=== PATIENT | male | born 1960 | race African-American/Black ===

== ENCOUNTER 2021-11-25 10:14 | Emergency (ER) | payer MEDICAID, SELFPAY ==
[2021-11-25 10:31] VITALS: BP 171/107; PULSE 88; RESP 16; TEMP 37.1; O2SAT 98
--- NOTE | 2021-11-25 11:04 | ED.SKABFB ---
HPI - Skin/Abscess/Foreign Bdy General Chief complaint: Wound/Laceration Stated complaint: BUMP BACK OF HEAD Time Seen by Provider: 11/25/21 10:45 Source: patient Mode of arrival: ambulatory Limitations: no limitations History of Present Illness HPI narrative: Patient presents emergency department for evaluation a lump to the back of his neck. He states that he frequently gets these lumps after shaving his head, however sometimes they get swollen, red, and infected. States that he was last treated 1-2 months ago with antibiotic and this improved. Denies fevers, chills, neck pain, neck stiffness, numbness or tingling of the extremities, pain down the back, urine or bowel dysfunction, headache. Related Data Previous Rx's Medication Instructions Recorded cephalexin 500 mg capsule 500 mg PO TID 5 days #15 caps 11/25/21 Allergies Allergy/AdvReac Type Severity Reaction Status Date / Time No Known Allergies Allergy Mild NOT Unverified 02/14/20 17:24 APPLICABLE Review of Systems Review of Systems: Skin: Red swollen lump to posterior head Yes all other systems are reviewed and are negative [facility] Past Medical History Attestation statement: The following information was validated with the patient. Source: old records reviewed Social History Social History Advance Directives: No Advance Directives Information Provided: Yes Physical Exam Vital Signs: Vital Signs: Last Vital Signs Temp 98.7 F 11/25/21 10:31 Pulse 83 11/25/21 11:16 Resp 16 11/25/21 11:16 BP 168/94 H 11/25/21 11:16 Pulse Ox 99 11/25/21 11:16 O2 Del Method 11/25/21 11:16 BMI result Body Mass Index 0.8 Appearance: Alert.?Oriented to person, place and time. No acute distress.?Normal affect. Eyes: Pupils equal, round and reactive to light.? ENT: Pharynx normal.?? Neck: Normal inspection.? Neck supple.?? CVS: Heart sounds normal. Normal heart rate and rhythm.? Pulses normal.?? Respiratory: No respiratory distress.? Lung sounds clear to auscultation bilaterally?? Abdomen: Soft and non-tender. Normoactive bowel sounds. Skin: Skin warm and dry.? Normal skin color.? Folliculitis at the left lower hairline with surrounding cellulitis, no fluctuance, or sign of abscess Extremities: No lower extremity edema.? Neuro: Moves all extremities spontaneously. Sensation intact bilaterally. No focal neuro deficits. Ambulates with normal steady gait. Course Course Course Narrative: Patient is a 61-year-old male who presents emergency department for evaluation of a lump to the back of his head, has had folliculitis/cellulitis in the past per his report, frequently gets these lumps due to shaving. Physical exam consistent with folliculitis and surrounding cellulitis, no sign of abscess. Nontoxic, afebrile, no neurological deficits. Discussed plan of care for warm moist compresses, course of antibiotics, follow-up with primary care provider as needed. Advised reasons to return back to the emergency department, discussed worrisome signs and symptoms, all questions were answered and he was discharged home in stable condition. MDM - Skin/Abscess/Foreign Bdy Medical Records Attestation: I reviewed the patient's medical records. Discharge Plan Discharge Clinical Impression: Folliculitis Patient Disposition: Home, Self-Care Instructions: Folliculitis (ED) Additional Instructions: You have been given a course of antibiotics, please complete this entire course. Apply warm moist compresses to the area frequently throughout the day. If you develop worsening pain, swelling, redness, drainage, fevers, chills this should be re-evaluated. Please follow-up with your primary care doctor as needed. Return to the emergency department any new or worsening symptoms or concerns. Prescriptions: New cephalexin 500 mg capsule 500 mg PO TID 5 Days Qty: 15 0RF Interventions: ED Discharge Assessment Last Done: 11/25/21 11:28 Discharge Date/Time: 11/25/21 11:28
[2021-11-25 11:16] VITALS: BP 168/94; PULSE 83; RESP 16; O2SAT 99
== END 2021-11-25 11:28 | disposition home or self-care (01) ==
PROVIDERS: Emergency Provider Emergency Medicine; PCP Family Medicine
DX: L73.9 Follicular disorder, unspecified (principal)
CPT/HCPCS: 99282; 99283

== ENCOUNTER 2023-02-23 14:31 | Outpatient (AMB) | payer MEDICAID, SELFPAY ==
--- NOTE | 2023-02-23 14:33 | A.OFFVIS_ITS ---
Intake Intake Visit Reasons: bleeding after intercourse Intake Note: NEW Patient presents today to established treatment for Bleeding After [place]: Meds- None Allergies to Antibiotic- No Known Allergies Blood Thinner- None Audiovisual Production Specialist Required: Yes Audiovisual Production Specialist Language: Syriac Information Interpreted: non-clinical & clinical Accompanied by: Significant Other Allergies No Known Allergies Allergy (Mild, Unverified 02/23/23 14:58) NOT APPLICABLE HPI HPI Comments History of Present Illness Details Gume is a 62-year-old male who presents today to the office to establish as a new patient for an evaluation of hematospermia. 02/23/2023? He presents today for an evaluation of hematospermia. Patient states that he has noted blood in the semen for many years starting in his 20s. Patient states that he was treated with antibiotics in the past and the symptoms will subside and then it will recur years later. Currently, he had blood in semen 2 months ago and was treated with Cipro. He denies any problems with urination. He denies any history of STDs, and he states that he was evaluated by urologist in the past. Eval: UA- leuk neg, blood neg Plan: Kidney, bladder US and PSA screening was ordered. Follow-up in office Cystoscopy. [facility] Medical History (Updated 03/01/23 @ 16:51 by Rei Gipson MD) HTN (hypertension) Heart attack Surgical History (Updated 02/23/23 @ 15:02 by RAVEN Vargas) No pertinent past surgical history Family History (Updated 02/23/23 @ 15:03 by RAVEN Vargas) Mother Heart disease Father Heart disease Social History (Updated 02/23/23 @ 15:03 by RAVEN Vargas) Alcohol intake: current Alcohol intake frequency: holidays/special occasions only Patient Tobacco Use Status: Never used Tobacco Review of Systems Const All systems reviewed & are unremarkable except as noted in HPI and below Reports no additional complaints Eyes Reports no additional complaints ENT Reports no additional complaints Card Denies dyspnea Resp Denies cough and Denies dyspnea GI Reports no additional complaints Musc Reports no additional complaints Skin/Breast Denies rash and Denies unusual bruising Neuro Reports no additional complaints Psych Reports no additional complaints Endo Reports no additional complaints Ash/Lymph Reports no additional complaints Aller/Immun Reports no additional complaints Physical Exam Const General: healthy appearing, no acute distress and well developed Orientation/consciousness: patient oriented x3 HEENT Head: Yes normocephalic and Yes atraumatic Eyes Conjunctivae: conjunctivae normal Neck Neck: Yes normal visual inspection Chest Chest palpation & inspection: normal inspection of the chest Resp Effort & Inspection: normal respiratory effort Cardio Rate: regular rate GI Inspection: Yes normal to inspection Palpation (GI): Soft to palpation Other: Prostate Exam: prostate nontender Skin General skin exam: no rashes or lesions noted Neuro General: patient oriented x3 Extrem General: No pedal edema Psych Appearance: grossly normal Affect: normal affect Results AMB Urinalysis, Automated UA Leukoctes 0 Massiel/uL Last Edit by RAVEN Vargas on 02/23/23 15:06 UA Nitrite Negative Last Edit by Shelbi Carney Gregg on 02/23/23 15:06 UA Urobilinogen 0 mg/dL Last Edit by RAVEN Vargas on 02/23/23 15:06 UA Protein 15 mg/dL Last Edit by Shelbi Carney [facility] on 02/23/23 15:06 UA pH 6.0 Last Edit by Shelbi Carney Gregg on 02/23/23 15:06 UA Blood 0 Yury/uL Last Edit by Shelbi Carney [facility] on 02/23/23 15:06 UA Specific [place] 1.015 Last Edit by Shelbi Carney Gregg on 02/23/23 15: 06 UA Ketone Negative Last Edit by RAVEN Vargas on 02/23/23 15:06 UA Bilirubin 0 mg/dL Last Edit by Shelbi Carney [facility] on 02/23/23 15:06 UA Glucose 0 mg/dL Last Edit by Shelbi Carney [facility] on 02/23/23 15:06 Results Reviewed Results Reviewed: Laboratory Last Values Urine pH (Auto) 6.0 02/23/23 15:04 Specific [place] (Auto) 1.015 02/23/23 15:04 Urine Protein (Auto) 15 mg/dL 02/23/23 15:04 Glucose (UA)(Auto) 0 mg/dL 02/23/23 15:04 Urine Ketones (Auto) Negative 02/23/23 15:04 Urine Blood (Auto) 0 Yury/uL 02/23/23 15:04 Urine Nitrite (Auto) Negative 02/23/23 15:04 Urine Bilirubin (Auto) 0 mg/dL 02/23/23 15:04 Urine Urobilinogen (Auto) 0 mg/dL 02/23/23 15:04 Leukocyte Esterase (Auto) 0 Massiel/uL 02/23/23 15:04 Assessment & Plan Assessment & Plan (1) Screening PSA (prostate specific antigen): Code(s): Z12.5 - Encounter for screening for malignant neoplasm of prostate Plan Kidney, bladder US and PSA screening was ordered. Follow-up in office Cystoscopy. Orders: Orders AMB Urinalysis Automated 02/23/23 Z13.9 - Encounter for screening, unspecified PSA,Total (Free>4and<10) 03/01/23 Z12.5 - Encounter for screening for malignant neoplasm of prostate US renal BI 03/01/23 R31.0 - Gross hematuria Patient Instructions: The patient had an opportunity to ask questions regarding treatment plan. All questions were answered. Imaging, Laboratory studies and physical exam results were discussed and reviewed in detail. No major barriers to understanding were identified. The patient expressed understanding and agreement with the above treatment plan.? ? ? The patient is aware they should contact our office by phone for worsening of their current condition or the appearance of new symptoms. Compliance is encouraged with any medications and followup testing that is ordered.? ? ? It is a privilege to be allowed the opportunity to participate in the urologic care of your patient. If you have any questions or concerns regarding treatment for the above conditions please do not hesitate to contact me. The office telephone contact is [phone].? ? ? This note is constructed in part using voice recognition software. While every effort has been made to ensure accuracy rope tier errors may have been included.? ? ? Yours sincerely,? ? ? Rei Gipson MD? ? Coding Level of Care Code New Pt Level 3 (91436) Diagnoses Screening PSA (prostate specific antigen) Z12.5
== END 2023-02-23 15:51 | disposition home or self-care (01) ==
PROVIDERS: PCP Family Medicine; Visit Provider Urology
DX: Z12.5 Encounter for screening for malignant neoplasm of prostate (principal)
CPT/HCPCS: 99203

== ENCOUNTER → 2023-02-23 14:31 | Outpatient (BNVA) | payer MEDICAID, SELFPAY | PROVIDERS: PCP Family Medicine; Visit Provider Urology | DX: R36.1 Hematospermia (principal); I10 Essential (primary) hypertension; Z12.5 Encounter for screening for malignant neoplasm of prostate | CPT/HCPCS: 81003; 99202 ==

== ENCOUNTER 2023-03-21 11:44 | Outpatient (REF) | payer MEDICAID, SELFPAY ==
[2023-03-21 14:10] LABS: Potassium 3.2 mmol/L (3.3-5.1)
== END 2023-03-21 11:45 | disposition home or self-care (01) ==
LOC: HO.HHCL 11:44
PROVIDERS: Visit Provider Family Medicine
DX: E87.6 Hypokalemia (principal)
CPT/HCPCS: 36415; 84132

== ENCOUNTER 2023-06-20 12:33 | Outpatient (REF) | payer MEDICAID, SELFPAY ==
--- NOTE | ~2023-06-20 | US_ITS ---
EXAMINATION: US RETROPERITONEAL LIMITED (RENAL ONLY) CLINICAL INFORMATION: Gross hematuria. COMPARISON: None available. TECHNIQUE: Real-time imaging of the kidneys. FINDINGS: RIGHT KIDNEY: 9.6 x 5.3 x 5.9 cm (SAG x AP x TRV). The kidney is normal in size, contour, and echogenicity. Renal cortical thickness is normal. No renal calculi or hydronephrosis. There are multiple simple cysts for which no follow-up imaging is recommended. The largest is a 4.5 x 2.6 x 3.5 cm exophytic cyst off the lateral kidney. LEFT KIDNEY: 9.8 x 5.9 x 5.2 cm (SAG x AP x TRV). The kidney is normal in size, contour, and echogenicity. Renal cortical thickness is normal. No renal calculi or hydronephrosis. There are multiple simple cysts for which no follow-up imaging is recommended. The largest is a 3.0 x 1.9 x 2.0 cm lower pole cyst. ADDITIONAL FINDIN.0 x 0.6 x 0.9 cm echogenic focus in the right lobe of liver is consistent with an hemangioma. US/US renal BI IMPRESSION: No significant finding within the kidneys. Multiple bilateral simple renal cysts for which no imaging follow-up is recommended. Incidental notes of an hemangioma in the liver.
== END 2023-06-20 12:34 | disposition home or self-care (01) ==
LOC: HO.US 12:33
PROVIDERS: PCP Family Medicine; Visit Provider Urology
DX: R31.0 Gross hematuria (principal)
CPT/HCPCS: 76775

== ENCOUNTER 2023-07-14 09:26 | Outpatient (AMB) | payer MEDICAID, SELFPAY ==
--- NOTE | 2023-07-14 09:57 | A.OFFVIS_ITS ---
Intake Intake Visit Reasons: Cysto Intake Note: Patient presents today for a Cystoscopy Meds: None Allergies to Antibiotic: No Known Allergies Blood Thinner: Aspirin Urinalysis test clear for Cysto Yes Patient stated he is currently taking Amoxicillin 500 due to a tooth extraction Disposable Uro-G Cystoscope Cannula Lot: [id number] Exp: 10/10/24. Pulp Maker Required: Yes Pulp Maker Language: Analysis Reporting Developer Name: Shelbi Carney, RAVEN/DANIA Spani Accompanied by: Allergies No Known Allergies Allergy (Mild, Verified 07/14/23 10:07) NOT APPLICABLE HPI HPI Comments History of Present Illness Details Gume is a 63-year-old male who presents today to the office for follow- up office cystoscopy. He had renal ultrasound performed 06/20/2023--bilateral simple cysts. Cystoscopy findings: Prostate bilobar prostatic urethral, bladder mucosa no suspicious bladder lesions Review of chart: 02/23/2023? He presents today for an evaluation of hematospermia. Patient states that he has noted blood in the semen for many years starting in his 20s. Patient states that he was treated with antibiotics in the past and the symptoms will subside and then it will recur years later. Currently, he had blood in semen 2 months ago and was treated with Cipro. He denies any problems with urination. He denies any history of STDs, and he states that he was evaluated by urologist in the past. Eval: UA- leuk neg, blood neg; Plan-- Kidney, bladder US and PSA screening was ordered. Follow-up in office Cystoscopy. 07/14/2023--plan PSA screening [facility] Medical History HTN (hypertension) Heart attack Surgical History No pertinent past surgical history Family History Mother Heart disease Father Heart disease Social History Alcohol intake: current Alcohol intake frequency: holidays/special occasions only Patient Tobacco Use Status: Never used Tobacco Review of Systems Const All systems reviewed & are unremarkable except as noted in HPI and below Reports no additional complaints Eyes Reports no additional complaints ENT Reports no additional complaints Card Reports no additional complaints Resp Reports no additional complaints GI Reports no additional complaints Reports as per HPI Musc Reports no additional complaints Skin/Breast Reports system reviewed and no additional complaints, except as documented Neuro Reports no additional complaints Psych Reports no additional complaints Endo Reports no additional complaints Ash/Lymph Reports no additional complaints Aller/Immun Reports no additional complaints Office Procedures Cystoscopy Consent Discussed risk and benefit or proposed procedure with the patient. Information consent for procedure given to the patient. Discussed technical aspects, risks, benefits and alternatives in full. Addressed all of the patient's questions and concerns regarding the procedure. The patient demonstrated knowledge and understanding. They wish to proceed with this procedure. Preparation The patient was prepped in the usual manner. A medical claims assistant was present and in the room. Genitalia was prepped with betadine solution in a sterile manner. Lidocaine Jelly 2% was placed into the urethra and 16Fr flexible Olympus cystoscope was inserted into the meatus after adequate lubrication. Procedure Time out per protocol performed. Bladder Inspection Bladder Inspection: The bladder was inspected in its entirety with utilization retroflexion displaying: Tumor(s): Nonvisualized Trabeculation: Present, mild Mucosal Erthema: Not applicable Orifices: normal shape and position Urethra: normal Cystoscopy findings: prostatic urethra - bilobar enlargement prostatic urethra, bulbous urethra WNL, no suspicious bladder lesions visualized [id number] DISPOSABLE SCOPE URO-G FLEXIBLE SCOPE Procedure code (CPT) selection complete Office Meds lidocaine HCl 2 % mucosal jelly in applicator Performing Provider: Rei Gipson MD [facility] Administered by: Rod Moraes LPN on 07/14/23 10:02 Dose Route Admin Location Dispensed Lot Number Expiration Date [facility] Security Strategist 10 mL intra-urethral 20 mL naproxen 500 mg tablet Performing Provider: Rei Gipson MD Performing Location: [facility] Administered by: Rod Moraes LPN on 07/14/23 10:02 Dose Route Admin Location Dispensed Lot Number Expiration Date [facility] Security Strategist 500 mg PO 1 tab ciprofloxacin HCl 500 mg tablet Performing Provider: Rei Gipson MD Performing Location: [facility] Administered by: Rod Moraes LPN on 07/14/23 10:02 Dose Route Admin Location Dispensed Lot Number Expiration Date [facility] Security Strategist 500 mg PO 1 tab Results AMB Urinalysis, Automated UA Leukoctes 0 Massiel/uL Last Edit by Nandini Han CMA on 07/14/23 10 :09 UA Nitrite Negative Last Edit by Nandini Han CMA on 07/14/23 10: 09 UA Urobilinogen 0.2 mg/dL Last Edit by Nandini Han CMA on 4 10:09 UA Protein 0 mg/dL Last Edit by Nandini Han CMA on 07/14/23 10:09 UA pH 6.0 Last Edit by Nandini Han [facility] on 07/14/23 10:09 UA Blood 0 Yury/uL Last Edit by Nandini Han [facility] on 07/14/23 10:09 UA Specific [place] 1.015 Last Edit by Nandini Han CMA on 10:09 UA Ketone Negative Last Edit by Nandini Han CMA on 07/14/23 10:0 9 UA Bilirubin 0 mg/dL Last Edit by Nandini Han [facility] on 07/14/23 10: 09 UA Glucose 0 mg/dL Last Edit by Nandini Han [facility] on 07/14/23 10:09 Results Reviewed Results Reviewed: Laboratory Last Values Urine pH (Auto) 6.0 07/14/23 10:08 Specific [place] (Auto) 1.015 07/14/23 10:08 Urine Protein (Auto) 0 mg/dL 07/14/23 10:08 Glucose (UA)(Auto) 0 mg/dL 07/14/23 10:08 Urine Ketones (Auto) Negative 07/14/23 10:08 Urine Blood (Auto) 0 Yury/uL 07/14/23 10:08 Urine Nitrite (Auto) Negative 07/14/23 10:08 Urine Bilirubin (Auto) 0 mg/dL 07/14/23 10:08 Urine Urobilinogen (Auto) 0.2 mg/dL 07/14/23 10:08 Leukocyte Esterase (Auto) 0 Massiel/uL 07/14/23 10:08 Date of Service: 06/20/23 US RETROPERITONEAL LIMITED (RENAL ONLY) CLINICAL INFORMATION: Gross hematuria. COMPARISON: None available. TECHNIQUE: Real-time imaging of the kidneys. FINDINGS: RIGHT KIDNEY: 9.6 x 5.3 x 5.9 cm (SAG x AP x TRV). The kidney is normal in size, contour, and echogenicity. Renal cortical thickness is normal. No renal calculi or hydronephrosis. There are multiple simple cysts for which no follow-up imaging is recommended. The largest is a 4.5 x 2.6 x 3.5 cm exophytic cyst off the lateral kidney. LEFT KIDNEY: 9.8 x 5.9 x 5.2 cm (SAG x AP x TRV). The kidney is normal in size, contour, and echogenicity. Renal cortical thickness is normal. No renal calculi or hydronephrosis. There are multiple simple cysts for which no follow-up imaging is recommended. The largest is a 3.0 x 1.9 x 2.0 cm lower pole cyst. ADDITIONAL FINDIN.0 x 0.6 x 0.9 cm echogenic focus in the right lobe of liver is consistent with an hemangioma. IMPRESSION: No significant finding within the kidneys. Multiple bilateral simple renal cysts for which no imaging follow-up is recommended. Incidental notes of an hemangioma in the liver. Assessment & Plan Assessment & Plan (1) Screening PSA (prostate specific antigen): Code(s): Z12.5 - Encounter for screening for malignant neoplasm of prostate (2) Gross hematuria: Code(s): R31.0 - Gross hematuria Plan Follow-up in 9 months PSA prior Orders: Orders AMB Cystoscopy 07/14/23 R31.0 - Gross hematuria AMB Urinalysis Automated 07/14/23 R33.9 - Retention of urine, unspecified PSA,Total (Free>4and<10) 8 Months Z12.5 - Encounter for screening for malignant neoplasm of prostate, R31.0 - Gross hematuria Patient Instructions: The patient had an opportunity to ask questions regarding treatment plan. All questions were answered. Imaging, Laboratory studies and physical exam results were discussed and reviewed in detail. No major barriers to understanding were identified. The patient expressed understanding and agreement with the above treatment plan. The patient is aware they should contact our office by phone for worsening of their current condition or the appearance of new symptoms. Compliance is encouraged with any medications and followup testing that is ordered. It is a privilege to be allowed the opportunity to participate in the urologic care of your patient. If you have any questions or concerns regarding treatment for the above conditions please do not hesitate to contact me. The office telephone contact is [phone]. This note is constructed in part using voice recognition software. While every effort has been made to ensure accuracy general teller errors may have been included. Yours sincerely, Rei Gipson MD Coding Level of Care Code Procedure Only Diagnoses Screening PSA (prostate specific antigen) Z12.5 Gross hematuria R31.0 CPT Codes Cystoscopy - CPT: 91974-[id number] ([id number])
== END 2023-07-14 10:53 | disposition home or self-care (01) ==
PROVIDERS: PCP Family Medicine; Visit Provider Urology
DX: R33.9 Retention of urine, unspecified (principal)
CPT/HCPCS: 52000

== ENCOUNTER → 2023-07-14 09:26 | Outpatient (BNVA) | payer MEDICAID, SELFPAY | PROVIDERS: PCP Family Medicine; Visit Provider Urology | DX: Z12.5 Encounter for screening for malignant neoplasm of prostate (principal); R31.0 Gross hematuria | CPT/HCPCS: 52000; 81003 ==

== ENCOUNTER 2023-12-16 09:48 | Outpatient (REF) | payer MEDICAID, SELFPAY ==
[2023-12-16 10:46] LABS: MANUAL DIFF FLAG NO
[2023-12-16 10:52] LABS: Basophils Absolute Auto 0.1 X10*3/uL (0.0-0.2); Basophils Percent Auto 0.8 % (0-2); Eosinophils Absolute Auto 0.3 X10*3/uL (0.0-0.4); Eosinophils Percent Auto 3.5 % (0-4); Hematocrit 38.9 % (42.0-52.0); Hemoglobin 13.2 g/dl (14.0-18.0); Imm Gran Abs Auto 0.02 X10*3/uL (0.00-0.03); Imm Gran Pct Auto 0.2 % (0.0-0.4); Lymphocytes Absolute Auto 1.9 X10*3/uL (1.2-4.9); Lymphocytes Percent Auto 21.1 % (20-40); Mean Corpuscular HGB Conc 33.9 g/dl (31.0-36.0); Mean Corpuscular Hemoglobin 29.9 pg (27.0-33.0); Mean Corpuscular Volume 88.2 fL (80.0-98.0); Monocytes Absolute Auto 0.7 X10*3/uL (0.1-1.2); Monocytes Percent Auto 7.8 % (2-11); Neutrophils Absolute Auto 6.1 x10*3/uL (2.0-8.3); Neutrophils Percent Auto 66.6 % (45-73); Platelet Count 212 X10*3/uL (160-400); Red Blood Count 4.41 X10*6/uL (4.60-5.80); Red Cell Distribution Width 13.6 % (11.0-16.0); White Blood Count 9.1 X10*3/uL (4.8-10.8)
[2023-12-16 10:55] LABS: Prothrombin Time 11.6 SEC (11.1-13.3)
[2023-12-16 13:13] LABS: Vitamin B12 258 pg/mL (200-900)
[2023-12-16 13:14] LABS: Folate 10.9 ng/mL (> or = 4.0)
[2023-12-16 21:03] LABS: Alanine Aminotransferase 17 U/L (0-40); Albumin Level 4.1 g/dL (3.5-5.0); Alkaline Phosphatase 53 U/L (39-117); Anion Gap 15 (12-20); Aspartate Amino Transferase 13 U/L (5-37); Bilirubin Direct 0.2 mg/dL (0.0-0.5); Bilirubin Total 0.5 mg/dL (0.0-1.0); Blood Urea Nitrogen 21 mg/dL (9-16); Calcium 9.3 mg/dL (8.4-10.2); Carbon Dioxide 22 mmol/L (22-29); Chloride 107 mmol/L (96-108); Cholesterol 127 mg/dL (<200); Estimated Glomerular Filt Rate > 60; Glucose Random 117 mg/dL (60-115); HDL Cholesterol 42 mg/dL (>40); LDL Cholesterol Calculated 72 mg/dL (<100); Potassium 3.5 mmol/L (3.3-5.1); Sodium 140 mmol/L (135-145); Triglycerides 69 mg/dL (<150)
[2023-12-18 21:43] LABS: TS Negative Control Passed; TS Panel A 0; TS Panel B 0; TS Positive Control Passed; TSpotTB Negative (Negative)
== END 2023-12-16 09:49 | disposition home or self-care (01) ==
LOC: HO.HHCL 09:48
PROVIDERS: PCP Family Medicine; Referring Provider Family Medicine; Visit Provider Family Medicine
DX: I25.119 Atherosclerotic heart disease of native coronary artery with unspecified angina pectoris (principal); F10.20 Alcohol dependence, uncomplicated; Z02.89 Encounter for other administrative examinations
CPT/HCPCS: 36415; 80053; 80061; 80076; 82248; 82607; 82746; 85025; 85610; 86481

== ENCOUNTER 2023-12-22 09:49 | Outpatient (REF) | payer MEDICAID, SELFPAY ==
[2023-12-22 12:20] LABS: Creatinine Urine 93.92 mg/dL; Microalbum/Creatinine Ratio Ur 13.8 ug/mg cr (<30)
== END 2023-12-22 09:50 | disposition home or self-care (01) ==
LOC: HO.HHCL 09:49
PROVIDERS: Visit Provider Internal Medicine Geriatric Medicine
DX: E11.43 Type 2 diabetes mellitus with diabetic autonomic (poly)neuropathy (principal)
CPT/HCPCS: 82043; 82570

== ENCOUNTER 2025-01-18 08:22 | Outpatient (REF) | payer OTHER, SELFPAY ==
--- OUTSIDE RECORDS SUMMARY | 2025-01-18 08:36 | XMS_ITS | Clinical Summary ---
Author Organization [employer] [facility] Address [address] [place] [address] [place] [phone] Phone Care Team Providers Care Push Bench Operator Helper Name Role Phone Manohar, Beth Cuba MD Primary Care Provi regulo Social History Tobacco Use Types Packs/Day Years Used Date Smoking Tobacco: Never Assessed Education Answer Date Recorded Are you interested in more education? Not on kim e 10/13/2022 Are you concerned about learning? Not on file 10/13/2022 No 10/13/2022 No 10/13/2022 Digital Access Answer Date Recorded No 10/26/2022 No 10/26/2022 Reliable internet access at home? Not on file 10/26/2022 Device with a working camera? Not on file Sex and Gender Information Value Date Recorded Sex Assigned at Not on file Legal Sex Male 12:09 PM EDT Gender Identity Not on file Sexual Orientation Not on file Plan of Treatment Not on file Medical Devices Not on file Insurance [facility] C3 ACO C3 ACO C3 ACO C[address] [place] [address] [address] [address] C3 ACO Care Teams Push Bench Operator Helper Relationship Specialty Start Date End Date Manohar, Beth Cuba MD [address] [place] [id number] PCP - General Family Medicine 10/13/22 Additional Source Comments The information contained in this document represents components of the legal health record. It is not the complete legal health record.[facility]
--- OUTSIDE RECORDS SUMMARY | 2025-01-18 08:36 | XMS_ITS | Encounter Summary ---
Author Organization [facility] Address [address] [place] [address] Care Team Providers Care Cold Press Operator Name Role Phone Unavailable Primary Care Provider Unavailabl e Encounter Details Date Type Department Care Team (Late st Contact Info) Description 05/10/2024 Lab Requisition [facility] [address] [facility] [place] [address] Will Stockton PA [address] [place] [phone] Other microscopic hematuria Social History Tobacco Use Types Packs/Day Years Used Date Smoking Tobacco: Never Assessed Sex and Gender Information Value Date Recorded Sex Assigned at Not on file Legal Sex Male 8:54 PM EST Gender Identity Not on file Sexual Orientation Not on file documented as of this encounter Plan of Treatment Not on file documented as of this encounter Procedures Procedure Name Priority Date/Time Associated Diagnosis Comments AP OUTSIDE CONSULT Routine 05/08/2024 12 :00 AM EST Other microscopic hematuria documented in this encounter Results * Anatomic pathology outside consult (05/08/2024 12:00 AM EST) Final Diagnosis Urine, Voided: Negative for high grade urothelial carcinoma. 06/01/2024 4:49 PM EST [facility] Clinical Information [id number] Urine cytology w/reflex Urovysion. 06/01/2024 4:49 PM EST [facility] Gross Description A. Urine, Voided, : [id number] Recd 1 TP slide 06/01/2024 4:49 PM EST [facility] Disclaimer Unless otherwise specified, all tissue is 10% NB formalin fixed and paraffin embedded. Technical pathology services provided by [facility] [address] [facility] [facility] [address] [place] [address] (CLIA #[id number]/S balaji Hudson MD, [employer] Charcoal [employer]er) 06/01/2024 4:49 PM EST [facility] Tissue Urine specimen from urethra / Unknown 05/08/2024 05/10/2024 10:00 AM EST us [facility] PATHOLOGY ORDERAB LES Final Result [facility] [address] [place] [address], documented in this encounter Visit Diagnoses Diagnosis Other microscopic hematuria documented in this encounter
--- OUTSIDE RECORDS SUMMARY | 2025-01-18 08:36 | XMS_ITS | Encounter Summary ---
Author Organization [facility] Address [address] [facility] [address] [address] Phone Care Team Providers Care Asset Management Analyst Name Role Phone Manohar, Beth Carmichael MD Primary Care Provider Joan octaviano Encounter Details Date Type Department Care Team (Late st Contact Info) Description 11/24/2023 Office Communication [facility] [address] [place] [address] Laurie Alejo [address] [place] [phone] Social History Tobacco Use Types Packs/Day Years Used Date Smoking Tobacco: Every Day Cigarettes Smokeless Tobacco: Never Alcohol Use Standard Drinks/Week Comments Not Currently 0 (1 standard drink = 0.6 oz pur e alcohol) Sex and Gender Information Value Date Recorded Sex Assigned at Not on file Legal Sex Male 5:13 PM EST Gender Identity Not on file Sexual Orientation Not on file documented as of this encounter Miscellaneous Notes * Telephone Encounter - Laurie Alejo - 11/24/2023 8:12 AM EDT [facility] is expecting a script for Cholecalciferol (Vitamin D) 25 MCG (1000 UT) tablet But it hasn't been transmitted yet? Can you check into it? TY documented in this encounter Plan of Treatment Upcoming Encounters Date Type Department Care Team (Late st Contact Info) Description 05/13/2025 4:00 PM EST Office Visit [facility] [address] [facility] [address] [place] [phone] Vinicio Garcia MD [address] [address] documented as of this encounter Visit Diagnoses Not on filedocumented in this encounter Care Teams Asset Management Analyst Relationship Specialty Start Date End Date Throckmorton, Beth Carmichael MD [address] [place] [address] PCP - General Family Medicine 01/28/23 documented as of this encounter
--- OUTSIDE RECORDS SUMMARY | 2025-01-18 08:36 | XMS_ITS | Encounter Summary ---
Author Organization [employer] Address [address] [place] [address] Care Team Providers Care Sub Acute Care Nurse Name Role Phone Waleska Rachel PharmD Unavailable Beth Villela MD Primary Care Provider + [phone] Vinicio Garcia Unavailable Meghan Loomis Unavailable [phone] Encounter Details Date Type Department Care Team (Late st Contact Info) Description 01/17/2025 Telephone [facility] [address] [place], [place] [phone] Beth Villela MD [address] [place], [place] [phone] Social History Tobacco Use Types Packs/Day Years Used Date Smoking Tobacco: Never Passive Smoke Exposure: Never Smokeless Tobacco: Never Alcohol Use Standard Drinks/Week Comments Never 0 (1 standard drink = 0.6 oz pur e alcohol) Alcohol Answer Date Recorded How often do you have a drink containing alcohol ? 3 10/31/2023 How many drinks containing a lcohol do you have on a typical day when you are drinking? 4 10/31/2023 How often do you have six or more drinks on one occasion? 3 10/31/2023 Depression Answer Date Recorded Patient Health Questionnaire-9 Score 3 12/22/2023 Patient Health Questionnaire-9 Score 3 12/22/2023 Last PHQ-9: Questionnaire Data Not on file 0 12/22/2023 Housing Stability Answer Date Recorded What is your housing situation today? I have housing today, but I am worried about losing housing in the future 12/15/[address] you li ve. Do you have problems with any of the following? None of the above 12/15/2023 Food Insecurity Answer Date Recorded Within the past 12 months, y ou worried that your food would run out before you got money to buy more: Often true 12/15/2023 Within the past 12 months,th e food you bought just didn't last and you didn't have enough money to get more: Often true Transportation Answer Date Recorded In the past 12 months, has l ack of transportation kept you from medical appts, meetings, work or from getting things needed for daily living? Yes, it has kept me from medical appointments or getting medications. 12/15/2023 Utilities Answer Date Recorded In the past 12 months, has t he electric, gas, oil or water company threatened to shut off services in your home? No 12/15/2023 Depression Answer Date Recorded Patient Health Questionnaire-2 Score 0 12/22/2023 Internet Access Answer Date Recorded Internet Access Q1 Yes 01/30/2024 Internet Access Q2 Not on file 01/30/2024 Sex and Gender Information Value Date Recorded Sex Assigned at Male 03/29/2022 10:19 AM EDT Legal Sex Male 10:19 AM EDT Gender Identity Male 03/29/2022 10:19 AM EDT Sexual Orientation Straight 03/29/2022 10 :19 AM EDT documented as of this encounter Miscellaneous Notes * Telephone Encounter - Brandy Han MA - 01/17/2025 2:37 PM EDT I spoke with with a patient and I let her know that she needs to do blood work before the appointment. * Telephone Encounter - Beth Villela MD - 01/17/2025 10:06 AM EDT Please ask Gume to get his labs done fasting before his appointment. Please try tomorrow because heis long overdue. Please stress importance of getting them done before his appointment. Thank you. documented in this encounter Plan of Treatment Upcoming Encounters Date Type Department Care Team (Late st Contact Info) Description 01/21/2025 11:15 AM EDT Office Visit [facility] [address] [place] [address] Beth Villela MD [address] [place] [address] documented as of this encounter Goals Goal Patient Goal Type Associated Problems Recent Progress Patient-Stated? Author Blood Pressure < 140/90 Blood Pressure 133/94(2024 10:27 AM EDT) No Piers-Gambl e, Waleska, PharmD Record your blood pressure once per day Blood Pressure No Piers-Gambl e, Waleska, PharmD Record Your Blood Sugar Daily General No Piers-Gambl e, Waleska, PharmD Take your medication every day Lifestyle No Piers-Gambl e, Waleska, PharmD Hemoglobin A1c < 7.5 Result Component 7(10/19/2024 11:22 AM EDT) No Piers-Gambl e, Waleska, PharmD documented as of this encounter Visit Diagnoses Not on filedocumented in this encounter Additional Health Concerns Assessment Noted Time PHQ-9 Depression Total Score: 3 12/22/19 24 7:58 AM EDT documented as of this encounter Care Teams Sub Acute Care Nurse Relationship Specialty Start Date End Date Beth Villela MD [address] [place] [address] PCP - General Family Medicine 06/19/24 Piers-Miller, Waleska, PharmD [address] [place] [phone] Pharmacist Internal Medicine 10/20/22 Vinicio Garcia [address] [place] [phone] Nephrology 07/22/24 Meghan Loomis [address] [facility] [address] [place] [address] Cardiology 11/02/24 ERNIE Devi [facility] [address] [facility] [address] [place] [address] Urology 05/09/24 documented as of this encounter
[2025-01-18 11:54] LABS: MANUAL DIFF FLAG NO
[2025-01-18 12:03] LABS: Hematocrit 41.0 % (42.0-52.0); Hemoglobin 13.9 g/dl (14.0-18.0); Imm Gran Abs Auto 0.02 X10*3/uL (0.00-0.03); Imm Gran Pct Auto 0.3 % (0.0-0.4); Lymphocytes Absolute Auto 1.9 X10*3/uL (1.2-4.9); Mean Corpuscular HGB Conc 33.9 g/dl (31.0-36.0); Mean Corpuscular Hemoglobin 29.9 pg (27.0-33.0); Mean Corpuscular Volume 88.2 fL (80.0-98.0); NRBC Abs Auto 0.000 X10*3/uL (0.0-0.012); NRBC Pct Auto 0.0 /100WBC (0.0-0.2); Platelet Count 227 X10*3/uL (160-400); Red Blood Count 4.65 X10*6/uL (4.60-5.80); White Blood Count 7.4 X10*3/uL (4.8-10.8)
[2025-01-18 12:23] LABS: Hemoglobin A1C 201.5312 umol/L; Total Hemoglobin (HGBA1C) 3695.0836 umol/L
[2025-01-18 13:31] LABS: Alanine Aminotransferase 30 U/L (0-40); Albumin Level 4.5 g/dL (3.5-5.0); Alkaline Phosphatase 65 U/L (39-117); Anion Gap 12 (12-20); Aspartate Amino Transferase 26 U/L (5-37); Blood Urea Nitrogen 20 mg/dL (9-16); Calcium 9.1 mg/dL (8.4-10.2); Carbon Dioxide 27 mmol/L (22-29); Chloride 106 mmol/L (96-108); Cholesterol 154 mg/dL (<200); Estimated Glomerular Filt Rate > 60; HDL Cholesterol 44 mg/dL (>40); Iron 94 mcg/dL (45-160); Percent Iron Saturation 33 % (15-50); Potassium 3.6 mmol/L (3.3-5.1); Sodium 141 mmol/L (135-145); Total Iron Binding Capacity 287 mcg/dL (228-428); Total Protein 7.5 g/dL (6.5-8.0); Triglycerides 90 mg/dL (<150); Unsaturated Iron Binding 193 ug/dL
[2025-01-18 13:46] LABS: PSA,Total (Free>4and<10) 3.96 ng/mL (0.00-4.00)
[2025-01-18 13:53] LABS: Ferritin 49 ng/mL (20-250)
[2025-01-18 13:57] LABS: Folate 10.7 ng/mL (> or = 4.0); Vitamin B12 253 pg/mL (200-900)
== END 2025-01-18 08:23 | disposition home or self-care (01) ==
LOC: HO.HHCL 08:22
PROVIDERS: Urology; PCP Family Medicine; Visit Provider Family Medicine
DX: Z12.5 Encounter for screening for malignant neoplasm of prostate (principal); E11.43 Type 2 diabetes mellitus with diabetic autonomic (poly)neuropathy; E78.5 Hyperlipidemia, unspecified; D64.9 Anemia, unspecified; R31.0 Gross hematuria
CPT/HCPCS: 36415; 80048; 80061; 80076; 82043; 82570; 82607; 82728; 82746; 83036; 83540; 84153; 84443; 85025

== ENCOUNTER 2025-02-01 08:51 | Outpatient (AMB) | payer OTHER, SELFPAY ==
--- NOTE | 2025-02-01 09:10 | A.OFFVIS_ITS ---
Vital Signs 02/01/25 09:13 Height 5 ft 8 in Weight 192 lb BMI 29.2 BP 128/80 Blood Pressure Location Lt brachial Position Sitting Pulse 81 Pulse Oximetry (%) 98 Oxygen Delivery Method Room Air Intake Visit Reasons: colon screening Intake Note: Patient new consult for 2nd pre colonoscopy screening. Patient denies any other GI issues. Correctional Classification Counselor Required: Yes Correctional Classification Counselor Name: [facility] Interpeter Accompanied by: Self / Same As Patient Allergies No Known Allergies Allergy (Mild, Verified 02/01/25 09:10) NOT APPLICABLE Medication List - Last Reconciled 02/01/25 by Belén Stephenson CNP amlodipine (Norvasc) 10 mg PO DAILY aspirin 81 mg PO DAILY atorvastatin 80 mg PO DAILY carvedilol 12.5 mg PO BID clopidogrel 75 mg PO DAILY lisinopril 40 mg PO QAM metformin 500 mg PO BID metoprolol tartrate 25 mg PO BID HPI HPI colon screening: Details: Patient is a 64-year-old male with PMH of hypertension, dyslipidemia and history of [place] 2022. referred by PCP for pre colonoscopy screening. Gume has a history of precancerous polyps found on colonoscopy in 2019. He reports regular bowel movements every morning without constipation, diarrhea, or hematochezia. He denies chronic abdominal pain, aside from occasional increased intake. Relevant comorbidities include a history of myocardial infarction in 2022, currently managed with aspirin and clopidogrel, and a history of elevated blood glucose/diabetes, previously treated with metformin (now discontinued due to improved glycemic control with exercise, though A1C remains elevated). He is advised to discuss possible resumption of metformin with his PCP. Patient denies: fever/chills, n/v, appetite changes, pyrosis, regurgitation,dysphasia, unintentional wt loss, ab pain or melena/hematochezia. Social hx: - Alcohol only socially at infrequent events -denies recreational drug use -former smoker, cessation 15 years ago - family hx as below -denies personal hx of [place] -tolerated anesthesia in the past without difficulty. PFSH Medical History (Updated 02/01/25 @ 14:08 by Belén Stephenson CNP) Diabetes Tubular adenoma of colon Colon cancer screening HTN (hypertension) Heart attack Surgical History No pertinent past surgical history Family History Mother Heart disease Father Heart disease Social History Alcohol intake: current Alcohol intake frequency: holidays/special occasions only Patient Tobacco Use Status: Never used Tobacco Review of Systems Const Reports as per HPI ENT Reports as per HPI Card Reports as per HPI Resp Reports as per HPI GI Reports as per HPI Reports as per HPI Physical Exam Vital Signs: Last Vital Signs Pulse 81 02/01/25 09:13 BP 128/80 02/01/25 09:13 Pulse Ox 98 02/01/25 09:13 Oxygen Delivery Method Room Air 02/01/25 09:13 BMI result Body Mass Index 29.2 Const General: healthy appearing, no acute distress and well developed Nutritional Appearance: average body habitus Orientation/consciousness: patient oriented x3 HEENT Head: Yes normal to inspection, Yes normocephalic and Yes atraumatic Face and sinus: Yes normal facial exam Eyes General: appearance normal, both eyes and all related structures Neck Neck: Yes normal visual inspection Resp Effort & Inspection: normal respiratory effort, able to speak in complete sentences, no tracheal deviation and symmetric chest movement Neuro General: patient oriented x3 Gait exam (Neuro): Normal gait present Psych Appearance: grossly normal Mental Status: mental status grossly normal Speech and movement: Normal speech and movement present Affect: normal affect Attitude: cooperative Thought process: Normal thought process present Thought content: Normal thought content present Insight: Good insight present (Psych) Judgement: Good judgement present (Psych) Results Reviewed Results Reviewed: Laboratory Tests 01/18/25 08:30 Hemoglobin A1c % 7.1 H Assessment & Plan Assessment & Plan (1) Colon cancer screening: Comment: 11/20/2019 colonoscopy (Dr. Drummond) complete - TA (cecum ), polypoid (ascending ), diverticulosis, hemorrhoids Code(s): Z12.11 - Encounter for screening for malignant neoplasm of colon Category: Medical Plan: Due for polyp surveillance colonoscopy. No alarm features. Cardiac hx necessitates barry-procedural risk assessment Medications: -prescriptions for laxative tablets and PEG sent to pharmacy; instructions on clear liquid diet given. - understands blood thinners will need to be held days prior to procedure. Nurse to review med holds per protocol. Patient educated on scheduling process, procedure preparation, including avoiding certain foods and ensuring clear liquid intake Advised on necessity for ride post-procedure due to sedation. (2) Tubular adenoma of colon: Code(s): D12.6 - Benign neoplasm of colon, unspecified Category: Medical Plan: as above (3) Diabetes: Code(s): E11.9 - Type 2 diabetes mellitus without complications Category: Medical Qualifiers: Diabetes mellitus type: type 2 Diabetes mellitus inking machine tender insulin use: without long-term use Diabetes mellitus complication status: with hyperglycemia Qualified Code(s): E11.65 - Type 2 diabetes mellitus with hyperglycemia Plan: History of diabetes, previously on metformin, now off due to improved control with exercise, but most recent A1C remains elevated. Additional Testing: Recent A1C elevated; no new labs ordered at this visit. Medication Management: Advised to discuss with PCP regarding possible resumption of metformin. Lifestyle Recommendations:Continue exercise and dietary measures for glycemic control. Follow-Up:PCP follow-up for diabetes management. Plan Follow-up after colonoscopy or sooner as needed Time: I spent a total of 30 minutes on the date of encounter which includes: Preparing to see the patient (reviewed previous documentation, test results and medical history) Performing a medically appropriate exam and/or evaluation Ordering medications, tests, and procedures Documenting clinical information in the health record Orders: Referrals GI Procedure Notification D12.6 - Benign neoplasm of colon, unspecified, Z12.11 - Encounter for screening for malignant neoplasm of colon Medications: New peg 3350-electrolytes 236-22.74-6.74 -5.86 gram until fecal effluent is clear 240 mL PO Q10M 4,000 mL 0RF bisacodyl Take per colonoscopy instructions 5 mg PO BID 4 tabs 0RF simethicone (Gas Relief (simethicone)) per colonoscopy prep instructions 125 mg PO ONCE 4 caps 0RF abdominal distention Coding Level of Care Code New Pt New Pt Level 3 (06748) Patient Type New Diagnoses Colon cancer screening Z12.11 Tubular adenoma of colon D12.6 Type 2 diabetes mellitus with hyperglycemia, without long-term current use of insulin E11.65 Diabetes mellitus type: type 2 Diabetes mellitus long-term insulin use: without inking machine tender use Diabetes mellitus complication status: with hyperglycemia
[2025-02-01 09:13] VITALS: BP 128/80; PULSE 81; O2SAT 98; BMI 29.2
--- OUTSIDE RECORDS SUMMARY | 2025-02-01 09:23 | XMS_ITS | Clinical Summary ---
Author Organization [facility] Address [address] [place] [address] [place] [phone] Phone Care Team Providers Care Diet Aid Name Role Phone Lee, Beth Cuba MD Primary Care Provi regulo [...] file Medical Devices Not on file Insurance [facility] C3 ACO C3 ACO C3 ACO C[address] [place] [address] [place] [address] C3 ACO Care Teams Diet Aid Relationship Specialty Start Date End Date Lee, Beth Cuba MD [address] [place] [address] PCP - General Family Medicine 10/13/22 Additional Source Comments The information contained in this document represents components of the legal health record. It is not the complete legal health record.[facility]
--- OUTSIDE RECORDS SUMMARY | 2025-02-01 09:23 | XMS_ITS | Clinical Summary ---
Author Organization [facility] Address [address] [address] Phone Care Team Providers Care Author'S Agent Name Role Phone Beth Villela MD Primary Care Provider U navailable Allergies No known active allergies Medications Norvasc 10 MG tablet Take 10 mg by mouth 1 (one) time each day 12/13/2022 Active Aspirin Low Dose 81 MG EC tablet Take 81 mg by mouth 1 (one) time each day 12/13/2022 Active atorvastatin (LIPITOR) 80 MG tablet Take 80 mg by mouth 1 (one) time each day 12/06/2022 Active carvedilol (COREG) 12.5 MG tablet Take 12.5 mg by mouth in the morning and 12.5 mg in the evening. 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 [address] [facility] [address] [place] [address] Vinicio Garcia MD Chronic kidney disease, stage 2 (mild) (Primary Dx); Hypertensive chronic kidney disease from Last 3 Months Social History Tobacco Use Types Packs/Day Years Used Date Smoking Tobacco: Every Day Cigarettes Smokeless Tobacco: Never Tobacco Cessation:Ready to Q uit: Not Asked; Counseling Given: No Alcohol Use Standard Drinks/Week Comments Not Currently 0 (1 standard drink = 0.6 oz pur e alcohol) Sex and Gender Information Value Date Recorded Sex Assigned at Not on file Legal Sex Male 5:13 PM EST Gender Identity Not on file Sexual Orientation Not on file Last Filed Vital Signs Vital Sign Reading Time Taken Comments Blood Pressure 128/76 11/11/2023 10:24 AM EDT Pulse 81 11/12/2024 4:05 PM EDT Temperature - - Respiratory Rate - - Oxygen Saturation - - Inhaled Oxygen Concentration - - Weight 86.5 kg (190 lb 9.6 oz) 11/12/2024 4:05 P M EDT Height - - Body Mass Index - - Plan of Treatment Upcoming Encounters Date Type Department Care Team (Late st Contact Info) Description 05/13/2025 4:00 PM EST Office Visit [facility] [address] [address] Vinicio Garcia MD [address] [phone] Health Maintenance Due Date Last Done Comments Colorectal Cancer Screening: Annual FOBT 2007 Colorectal Cancer Screening: Colonoscopy 2007 Colorectal Cancer Screening: Sigmoidoscopy 2007 Diabetes: Ophthalmology Exam 01/28/2023 Diabetes: Pedal Pulse Checked 01/28/2023 Diabetes: Sensory Foot Exam 01/28/2023 Diabetes: Visual Foot Exam 01/28/2023 Diabetes: Hemoglobin A1C 01/19/2025 025, 11/23/2023, 03/21/2023 Influenza Vaccine (#1) 2025 , 02/26/2019 Pneumococcal Vaccine: 50+ Years Completed 12/02/2022 Pneumococcal Vaccine: Peds ( 0 to 5 Years) and At-Risk Patients (6 to 49 Years) Discontinued 12/02/2022 Hepatitis B Vaccine Aged Out 11/08/2023, 04/18/2023, 03/21/2023 No longer eligible based on patient's age to complete this topic [place] Care Teams Author'S Agent Relationship Specialty Start Date End Date Manohar, Beth Carmichael MD [address] [place] [id number] PCP - General Family Medicine 01/28/23
--- OUTSIDE RECORDS SUMMARY | 2025-02-01 09:23 | XMS_ITS | Encounter Summary ---
Author Organization [facility] Address [address] [facility] [address] [address] Phone Care Team Providers Care Clinical Services Manager Name Role Phone Granite, Beth Carmichael MD Primary Care Provider Joan octaviano Encounter Details Date Type Department Care Team (Late st Contact Info) Description 11/24/2023 Office Communication [facility] [address] [facility] [address] [place] [address] Laurie Alejo [address] [place] [phone] Social History Tobacco Use Types Packs/Day Years [...] Laurie Alejo - 11/24/2023 8:12 AM EDT [facility] is expecting a script for Cholecalciferol (Vitamin D) 25 MCG (1000 UT) tablet But it hasn't been transmitted yet? Can you check into it? TY documented in this encounter Plan of Treatment Upcoming Encounters Date Type Department Care Team (Late st Contact Info) Description 05/13/2025 4:00 PM EST Office Visit [facility] [address] [facility] [address] [place] [phone] Vinicio Garcia MD [address] [phone] documented as of this encounter Visit Diagnoses Not on filedocumented in this encounter Care Teams Clinical Services Manager Relationship Specialty Start Date End Date Granite, Beth Carmichael MD [address] [place] [address] PCP - General Family Medicine 01/28/23 documented as of this encounter
--- OUTSIDE RECORDS SUMMARY | 2025-02-01 09:23 | XMS_ITS | Encounter Summary ---
Author Organization [facility] Address [address] [place] [address] Care Team Providers Care Leather Stitcher Name Role Phone Unavailable Primary Care Provider Unavailabl e Encounter Details Date Type Department Care Team (Late st Contact Info) Description 05/07/2024 Lab Requisition [facility] [address] [place] [address] Milan Clarke MD [address] [facility] [address] [place] [address] Gross hematuria Social History Tobacco Use Types Packs/Day [...] Associated Diagnosis Comments AP OUTSIDE CONSULT Routine 05/01/2024 12 :00 AM EST Gross hematuria documented in this encounter Results * Anatomic pathology outside consult (05/01/2024 12:00 AM EST) Final Diagnosis Urine, Voided: Negative for high-grade urothelial carcinoma. 05/18/2024 5:55 PM EST [facility] Clinical Information [id number] Urine cytology w/reflex UroVysion. 05/18/2024 5:55 PM EST [facility] Gross Description A. Urine, Voided, : [id number] recd 1 TP slide. 05/18/2024 5:55 PM EST [facility] Disclaimer Unless otherwise specified, all tissue is 10% NB formalin fixed and paraffin embedded. Technical pathology services provided by [facility] at [address] [facility] [address], [place] [address] (CLIA #[id number]/S balaji Hudson MD, Flagger) 05/18/2024 5:55 PM EST [facility] Tissue Urine specimen from urethra / Unknown 05/01/2024 05/07/2024 10:50 AM EST us Milan Clarke MD LAB PATHOLOGY ORDERABLES Fi nal Result [facility] [address] [place] [address], documented in this encounter Visit Diagnoses Diagnosis Gross hematuria documented in this encounter
--- OUTSIDE RECORDS SUMMARY | 2025-02-01 09:23 | XMS_ITS | Encounter Summary ---
Author Organization [facility] Address [address] [place] [address] Care Team Providers Care Urban Renewal Manager Name Role Phone Unavailable Primary Care Provider Unavailabl e Encounter Details Date Type Department Care Team (Late st Contact Info) Description 05/10/2024 Lab Requisition [facility] [address] [facility] [place] [address] Will Stockton PA [address] [place] [phone] Other microscopic hematuria Social History Tobacco Use [...] grade urothelial carcinoma. 06/01/2024 4:49 PM EST [facility] Clinical Information [id number] Urine cytology w/reflex Urovysion. 06/01/2024 4:49 PM EST [facility] Gross Description A. Urine, Voided, : [id number] Recd 1 TP slide 06/01/2024 4:49 PM EST [facility] Disclaimer Unless otherwise specified, all tissue is 10% NB formalin fixed and paraffin embedded. Technical pathology services provided by [facility] [address] [facility] [address] [place] [address] (CLIA #[id number]/S balaji Hudson MD, Cistern Room Operator) 06/01/2024 4:49 PM EST [facility] Tissue Urine specimen from urethra / Unknown 05/08/2024 05/10/2024 10:00 AM EST us Will KLEIN LAB PATHOLOGY ORDERAB LES Final Result [facility] [address] [place] [address], documented in this encounter Visit Diagnoses Diagnosis Other microscopic hematuria documented in this encounter
--- OUTSIDE RECORDS SUMMARY | 2025-02-01 09:23 | XMS_ITS | Clinical Summary ---
Author Organization [address] Address [address] [place] [address] Phone Care Team Providers Care Physician General Practice Name Role Phone Unavailable Primary Care Provider Unavailabl e Social History Tobacco Use Types Packs/Day Years Used Date Smoking Tobacco: Never Assessed Sex and Gender Information Value Date Recorded Sex Assigned at Not on file Legal Sex Male 8:54 PM EST Gender Identity Not on file Sexual Orientation Not on file Plan of Treatment Health Maintenance Due Date Last Done Comments DTaP,Tdap,and Td Vaccines (1 - Tdap) 1977 Pneumococcal Vaccine: 50+ Ye ars (1 of 1 - PCV) 2008 Zoster Vaccines (1 of 2) 2008 Abdominal Aortic Aneurysm (A AA) Screen 06/24/2023 Cholesterol Screening (Lipid Panel) 06/24/2023 Colorectal Cancer Screening: Colonoscopy 06/24/2023 Falls Risk Assessment 06/24/2023 Hepatitis C Screening 06/24/2023 Social Influencers of Health Screening 06/24/2023 Depression Screening 05/30/2024 COVID-19 Vaccine (1 - 2023-2 5 season) 2025 Influenza Vaccine (#1) 2025 RSV Immunization Adult Patie nts (1 - 1-dose 75+ series) 2033 HIB Vaccines Aged Out No longer eligi ble based on patient's age to complete this topic HPV Vaccines Aged Out No longer eligi ble based on patient's age to complete this topic Hepatitis A Vaccines Aged Out No long er eligible based on patient's age to complete this topic Hepatitis B Vaccines Aged Out No long er eligible based on patient's age to complete this topic IPV Vaccines Aged Out No longer eligi ble based on patient's age to complete this topic MMR Vaccines Aged Out No longer eligi ble based on patient's age to complete this topic Meningococcal ACWY Vaccine Aged Out N o longer eligible based on patient's age to complete this topic Meningococcal B Vaccine Aged Out No l onger eligible based on patient's age to complete this topic RSV Immunization Patients Un regulo 20 months Aged Out No longer eligible b ased on patient's age to complete this topic Varicella Vaccines Aged Out No longer eligible based on patient's age to complete this topic Insurance MEDICAID - [place]
--- OUTSIDE RECORDS SUMMARY | 2025-02-01 09:23 | XMS_ITS | Encounter Summary ---
Author Organization [email or web address] [facility] Address [address] [facility] [address] [place] [address] Care Team Providers Care Hospice/Home Health Aide Name Role Phone Beth Villela MD Primary Care Provider Waleska Rachel PharmD Unavailable Beth Villela MD Primary Care Provider Vinicio Garcia Unavailable Meghan Loomis Unavailable [phone] Encounter Details Date Type Department Care Team (Late st Contact Info) Description 07/06/2022 Abstract [facility] [address] [place], [place] [phone] Beth Villela MD [address] [place], [place] [phone] Social History Tobacco Use Types Packs/Day Years Used Date Smoking Tobacco: Never Assessed Sex and Gender Information Value Date Recorded Sex Assigned at Male 03/29/2022 10:19 AM EDT Legal Sex Male 10:19 AM EDT Gender Identity Male 03/29/2022 10:19 AM EDT Sexual Orientation Straight 03/29/2022 10 :19 AM EDT documented as of this encounter Plan of Treatment Not on file documented as of this encounter Procedures Procedure Name Priority Date/Time Associated Diagnosis Comments COLONOSCOPY Routine 11/20/2019 documented in this encounter Results * Colonoscopy (11/20/2019) Colonoscopy tubular adenoma with Dr. Drummond us Historical Provider HEALTH MAINTENANCE Final Result documented in this encounter Visit Diagnoses Not on filedocumented in this encounter Care Teams Hospice/Home Health Aide Relationship Specialty Start Date End Date Beth Villela MD [address] [place] [address] PCP - General Family Medicine 05/30/18 06/18/24 Beth Villela MD [address] [place] [address] PCP - General Family Medicine 06/19/24 Waleska Rachel, MichaelD [address] [place] [address] Pharmacist Internal Medicine 10/20/22 Vinicio Garcia [address] [place] [phone] Nephrology 07/22/24 Meghan Loomis [address] [facility] [address] [place] [address] Cardiology 11/02/24 ERNIE Devi [facility] Urology [address] [place] [address] Urology 05/09/24 documented as of this encounter
--- OUTSIDE RECORDS SUMMARY | 2025-02-01 09:23 | XMS_ITS | Encounter Summary ---
Author Organization [employer] Address [address] [facility] 7[address] [place] [address] Care Team Providers Care Brick Siding Applicator Name Role Phone Beth Villela MD Primary Care Provider + [phone] Waleska Rachel PharmD Unavailable Beth Villela MD Primary Care Provider + [phone] Vinicio Garcia Unavailable Meghan Loomis Unavailable [phone] Encounter Details Date Type Department Care Team (Late st Contact Info) Description 03/23/2023 Orders Only [facility] [address] [place], [place] [phone] Beth Villela MD [address] [place], [place] [phone] Social History Tobacco Use Types Packs/Day Years Used Date Smoking Tobacco: Never Passive Smoke Exposure: Never Smokeless Tobacco: Never Housing Stability Answer Date Recorded What is your housing situation today? I do not have housing (Staying with others, in a hotel, in a custodial, living outside on the street, on a beach, in a car, or in a park 03/06/[address] you li ve. Do you have problems with any of the following? None of the above 03/06/2023 Food Insecurity Answer Date Recorded Within the past 12 months, y ou worried that your food would run out before you got money to buy more: Never True 2023 Within the past 12 months,th e food you bought just didn't last and you didn't have enough money to get more: Never True Transportation Answer Date Recorded In the past 12 months, has l ack of transportation kept you from medical appts, meetings, work or from getting things needed for daily living? No 2023 Utilities Answer Date Recorded In the past 12 months, has t he electric, gas, oil or water company threatened to shut off services in your home? No 2023 Depression Answer Date Recorded Patient Health Questionnaire-2 Score 2 10/01/2022 Sex and Gender Information Value Date Recorded Sex Assigned at Male 03/29/2022 10:19 AM EDT Legal Sex Male 10:19 AM EDT Gender Identity Male 03/29/2022 10:19 AM EDT Sexual Orientation Straight 03/29/2022 10 :19 AM EDT documented as of this encounter Plan of Treatment Not on file documented as of this encounter Goals Goal Patient Goal Type Associated Problems Recent Progress Patient-Stated? Author Blood Pressure < 140/90 Blood Pressure 140/80( 025 11:41 AM EDT) No Waleska Stewart, PharmD documented as of this encounter Visit Diagnoses Not on filedocumented in this encounter Care Teams Brick Siding Applicator Relationship Specialty Start Date End Date Beth Villela MD [address] [place] [id number] PCP - General Family Medicine 05/30/18 06/18/24 Beth Villela MD [address] [place] [address] PCP - General Family Medicine 06/19/24 Waleska Rachel, MichaelD [address] [place] [phone] Pharmacist Internal Medicine 10/20/22 Vinicio Garcia [address] [facility] [address] [phone] Nephrology 07/22/24 Ebonie Meghan L [address] [facility] [address] [place] [address] Cardiology 11/02/24 ERNIE Devi [facility] Urology [address] [place] [address] Urology 05/09/24 documented as of this encounter
--- OUTSIDE RECORDS SUMMARY | 2025-02-01 09:23 | XMS_ITS | Clinical Summary ---
Author Organization [employer] Address [address] [place] [address] Care Team Providers Care Kinesiotherapist Name Role Phone Waleska RachelD Unavailable Beth Villela MD Primary Care Provider + [phone] Vinicio Garcia Unavailable Meghan Loomis Unavailable [phone] Allergies No known active allergies Medications * This document contains information received from the source organization and may not represent a complete record from that organization. Norvasc 10 MG tabletIndications :Primary hypertension TAKE 1 TABLET BY MOUTH EVERY DAY. PATIENT DOES NOT TOLERATE GENERIC 90 tablet 3 5 Active finasteride (Proscar) 5 MG tabletIndications :Benign prostatic hyperplasia with urinary frequency Take 1 tablet (5 mg) by mouth Once per day. Do not crush, chew, or split. 30 tablet 3 5 Active glucose blood (FREESTYLE LITE) test stripIndications: Type 2 diabetes mellitus with diabetic autonomic neuropathy, without long-term current use of insulin ([facility]) USE DIRECTED TO TEST BLOOD SUGAR TWICE DAILY 100 strip 11 5 Active lisinopril 40 MG tabletIndications :Hypertension, unspecified type TAKE 1 TABLET BY MOUTH EVERY MORNING 90 tablet 3 5 Active TRUEplus Lancets 33G miscIndications:T ype 2 diabetes mellitus with diabetic autonomic neuropathy, without long-term current use of insulin ([facility] USE DIRECTED TO TEST BLOOD SUGAR TWICE DAILY 100 each 11 5 Active ezetimibe (Zetia) 10 MG tabletIndications :Dyslipidemia Take 1 tablet (10 mg) by mouth Once per day. 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 90 tablet 3 5 Active carvedilol (Coreg) 12.5 MG tabletIndications :Hypertension, unspecified type Take 1 tablet (12.5 mg) by mouth 2 times daily. 180 tablet 3 5 Active atorvastatin (Lipitor) 80 MG tabletIndications :Dyslipidemia Take 1 tablet (80 mg) by mouth Once per day. 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 90 tablet 3 5 Active Active Problems Problem Noted Date Diagnosed Date Alcohol use disorder, severe, dependence 025 Family history of prostate cancer 01/11/2024 Overview (10/19/2024): -followed by [facility], seen 01/04/24 -diagnostic cystoscopy normal 01/04/24 -will request PSA level from [facility], [facility] 01/11/24 PSA 5.0 12/13/23 Assessment & Plan (10/19/2024 4:55 PM EDT): -followed by [facility], seen 01/04/24 -diagnostic cystoscopy normal 01/04/24 -will request PSA level from [facility], [facility] 01/11/24 PSA 5.0 12/13/23 IGLESIA (generalized anxiety disorder) 12/22/2023 Gross hematuria 12/15/2023 Overview (01/11/2024): -Followed by [facility] -CT Abd/Pelis with and wo IV contrast 12/13/23 mid left ureter is not opacified on excretory phase images. There is no hydronephrosis or suspicious renal mass. Bladder is normal. Mildly enlarge prostate gland slightly indenting the base of the bladder. -cystoscopy normal 01/04/2024 -Note with Dr. Hager, urology from 12/07/23 reviewed. -urine cytology x 1 with FISH was negative Benign prostatic hyperplasia with urinary freque ncy 11/28/2023 Overview (08/29/2024): -followed by [facility], seen 01/04/24 -diagnostic cystoscopy normal 01/04/24 - PSA 5.0 12/15/23 down from 5.05 April 2023, copy of lab received from urology -[facility], labs ordered, follow up 1 year -note from 08/29/24 reviewed Assessment & Plan (10/19/2024 4:55 PM EDT): -followed by [facility], seen 01/04/24 -diagnostic cystoscopy normal 01/04/24 - PSA 5.0 12/15/23 down from 5.05 April 2023, copy of lab received from urology -seen [facility] 05/08/[facility], labs ordered, follow up 1 year -note from 08/29/24 reviewed Low vitamin D level 11/11/2023 Overview (10/19/2024): No results found for: [id number] Alcohol use disorder 10/31/2023 Assessment & Plan (11/08/2023 3:59 PM EDT): PROGRESS NOTE: ID: Gume is a 63 y.o. straight-identified cis-male (pronouns he/him/his) with previous documented hx of Depression. MH services including OP Psychotherapy psychopharmacology who presents for Depression, and alcohol Use Disorder. During IBH Consult Gume presenting with depressed mood, loss of interests/pleasure , changes in sleep difficulty staying asleep , change in appetite or weight reduce appetite, psychomotor retardation, trouble concentrating, thoughts of worthlessness or guilt and spending a lot of time getting/using/recovering from use , cravings and urges to use, recurrent use resulting in failure to fulfill major obligations at work/home/school , continued use, even when it causes interpersonal problems, continued use despite physical or psychological problem (potentially related or made worse by use) , tolerance in regard to alcohol. for a period of 18+ mo, for all symptoms in the context of alcoholisms, stress relationship with partner, and possible eviction. PLAN: Continue with current services (defined as services in the past 12 months) Behavioral Health Integration Plan Internal Follow up with [facility] Patient Self Plan Patient to utilize skills provided in intervention , [facility] as needed, Patient to engage in OP therapy , and Patient to reach out to [facility] as needed Hypertensive chronic kidney disease 01/28/2023 Other specified health status 11/29/2022 Overview (08/22/2024): -next comprehensive annual evaluation due after 12/21/24 -eye care facilitated by -dental home is -[facility] care proxy Assessment & Plan (12/02/2022 10:33 AM EDT): -next physical exam due after -eye care: referred 09/27/2022. 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 10/27/2022 Overview (11/02/2024): Hx vfib arrest 2022, s/p defib x 1 Hx [place] 09/2022 was found to be 100% occluded s/p LAURA and 70% D2 , preserved EF on echo -continue current meds including ASA,brillinta, atorvastatin 80 -statin discontinued in hospital for significant transaminitis--at hospital AST 619 and ALT 541, LFTS normalized and atorvastatin 80mg restarted -saw airline security representative -Dr Brady on 11/04/2022 and w cardiac rehab on 11/14/2022 -cardiology note from Meghan Loomis NP reveiwed form 10/30/24 Assessment & Plan (10/19/2024 4:53 PM EDT): Hx IL 09/2022 was found to be 100% occluded s/p LAURA and 70% D2 ostium stenosis not intervene per note yet. -continue current meds including ASA,brillinta, atorvastatin 80 -statin discontinued in hospital for significant transaminitis--at hospital AST 619 and ALT 541, LFTS normalized and atorvastatin 80mg restarted -saw airline security representative -Dr Brady on 11/04/2022 and w cardiac rehab on 11/14/2022 -has appt to see cardiology Mar 2025 Assessment & Plan (03/21/2023 10:32 AM EDT): Hx IL 09/2022 was found to be 100% occluded s/p LAURA and 70% D2 ostium stenosis not intervene per note yet. -continue current meds including ASA,brillinta, atorvastatin 80 -statin discontinued in hospital for significant transaminitis--at hospital AST 619 and ALT 541, LFTS normalized and atorvastatin 80mg restarted -saw airline security representative -Dr Brady on 11/04/2022 and w cardiac rehab on 11/14/2022 Assessment & Plan (12/02/2022 9:19 AM EDT): Hx IL 09/2022 was found to be 100% occluded s/p LAURA and 70% D2 ostium stenosis not intervene per note yet. -continue current meds including ASA,brillinta, atorvastatin 80 -statin discontinued in hospital for significant transaminitis--at hospital AST 619 and ALT 541, LFTS normalized and atorvastatin 80mg restarted -saw airline security representative -Dr Brady on 11/04/2022 and w cardiac rehab on 11/14/2022 Assessment & Plan (10/27/2022 5:43 PM EDT): [place] - was found to be 100% occluded s/p LAURA and 70% D2 ostium stenosis not intervene per note yet. 10/26/2022 total cholesterol 172,LDL 110, HDL42,AST 10,ALT 17 ,WBC 11.000-likely in setting of recent cardiac arrest -continue current meds including ASA,brillinta -pt not on statins -discontinued in hospital for significant transaminitis--at hospital AST 619 and ALT 541 --from repeated chem here LFTs wnl--I advise and offered today to pt to start statins with atorvastatin to try to keep LDL < 70 - but pt states has apt w his airline security representative in 1 week and would follow with cards about medication -Gave today to pt all recent lab results here to take to his cards. -pt reports has all meds Refilled x now -has apt w airline security representative -Dr Brady on 11/04/2022 and w cardiac rehab on 11/14/2022 --advised to go to apts Acute nontraumatic kidney injury 10/27/2022 Overview (08/22/2024): Lab Results Component Value Date CREATININE 1.61 (H) 11/24/2022 CREATININE 1.68 (H) 10/26/2022 BUN 27 (H) 11/24/2022 BUN 26 (H) 10/26/2022 -referred to nephrology 11/2022 -chlorthalidone discontinued 11/24/2022 -avoid nephrotoxic agnents Assessment & Plan (03/21/2023 10:32 AM EDT): Lab Results Component Value Date CREATININE 1.61 (H) 11/24/2022 CREATININE 1.68 (H) 10/26/2022 BUN 27 (H) 11/24/2022 BUN 26 (H) 10/26/2022 -referred to nephrology 11/2022 -chlorthalidone discontinued 11/24/2022 -avoid nephrotoxic agnents Assessment & Plan (10/27/2022 5:47 PM EDT): [place] cr 10/26/2022 1.6<---1.2 ( at hospital discharge) <---1.4 (at admission) <---here last chem 1.15 in 2019 -pt currently on chlortalidone that is new for pt and also w noted k+ wnl but borderline low at 3.5 ---advised pt to RTC in 1 week to repeat chem and if still raising cr will need to consider to stop chlorthalidone and possibly increase BB and or switch to HDCTZ low dose ? -advised to improve diet rich in K + -repeat chem and mag in 1 week -pt to f as well w PCP in 4 weeks Tubular adenoma 09/30/2022 Overview (08/22/2024): Tubular adenoma on 10/[address] Drummond. Repeat due in 10/2024. Assessment & Plan (03/21/2023 10:30 AM EDT): Tubular adenoma on 10/[address] Drummond. Repeat due in 10/2024. Assessment & Plan (12/02/2022 9:20 AM EDT): Tubular adenoma on 10/[address] Drummond. Repeat due in 10/2024. Assessment & Plan (10/01/2022 8:50 AM EDT): Tubular adenoma on 10/[address] Drummond. Repeat due in 10/2024. Type 2 diabetes mellitus wit h diabetic autonomic (poly)neuropathy 09/30/2022 Overview (01/21/2025): Diabetes is controlled. -Dx 01/2019 based on A1c 6.1%, fasting BS 157. Lab Results Component Value Date HGBA1C 7.5 (A) 01/21/2025 HGBA1C 7.1 (H) 01/18/2025 HGBA1C 7.0 (A) 10/19/2024 Lab Results Component Value Date MICROALBUR <5.0 01/18/2025 CREATININE 1.17 01/18/2025 -Changes: Jardiance 10mg once daily added by CDTM 11/24/23; due to patient concern of pill burden, metformin changed to combination tablet Synjardi XR 10mg-1000mg once daily by CDTM 11/24/23 -Hector/Arb: lisinopril 40mg -Statin therapy: atorvastatin 80mg once daily -Diabetic eye exam: [place] 09/2022. -Diabetic foot exam: 01/21/25 -Continue lifestyle modifications -Continue current medications -Not currently on any medications, A1C and BGLs been controlled. Ordered all labs to evaluate 10/19/24 Assessment & Plan (10/19/2024 4:55 PM EDT): Diabetes is controlled. -Dx 01/2019 based on A1c 6.1%, fasting BS 157. Lab Results Component Value Date HGBA1C 7.0 (A) 10/19/2024 HGBA1C 7.0 (A) 11/23/2023 HGBA1C 6.6 (A) 03/21/2023 Lab Results Component Value Date MICROALBUR 13.0 12/22/2023 CREATININE 1.19 12/16/2023 -Changes: Jardiance 10mg once daily added by CDTM 11/24/23; due to patient concern of pill burden, metformin changed to combination tablet Synjardi XR 10mg-1000mg once daily by CDTM 11/24/23 -Hector/Arb: lisinopril 40mg -Statin therapy: atorvastatin 80mg once daily -Diabetic eye exam: [place] 09/2022. -Diabetic foot exam: 10/01/2022. -Continue lifestyle modifications -Continue current medications -Not currently on any medications, A1C and BGLs been controlled. Ordered all labs to evaluate 10/19/24 Assessment & Plan (03/21/2023 10:31 AM EDT): Diabetes is controlled. --Dx 01/2019 based on A1c 6.1%, fasting BS 157. Lab Results Component Value Date HGBA1C 6.1 (H) 10/26/2022 HGBA1C 7.0 (A) 10/01/2022 -No results found for: POCA1C - Lab Results Component Value Date CREATININE 1.61 (H) 11/24/2022 -Hector/Arb: lisinopril 40mg -Statin therapy: Start rosuvastatin 20mg 10/01/2022. -Diabetic eye exam: [place] 09/2022. -Diabetic foot exam:10/01/2022. -Continue lifestyle modifications -Continue current medications -Continue metformin 500mg BID started 01/2019. Assessment & Plan (12/02/2022 10:14 AM EDT): Diabetes is controlled. -Dx 01/2019 based on A1c 6.1%, fasting BS 157. Lab Results Component Value Date HGBA1C 6.1 (H) 10/26/2022 HGBA1C 7.0 (A) 10/01/2022 -No results found for: POCA1C - Lab Results Component Value Date CREATININE 1.61 (H) 11/24/2022 -Changes: -Hector/Arb: lisinopril 40mg -Statin therapy: Start rosuvastatin 20mg 10/01/2022. -Diabetic eye exam: [place] 09/2022. -Diabetic foot exam: 10/01/2022. -Continue lifestyle modifications -Continue current medications -Continue metformin 500mg BID started 01/2019. Assessment & Plan (10/27/2022 5:39 PM EDT): 10/26/2022 hB1ac is 6.1 on metformin 500 mg BID -current GFR is 45 so ok to continue current dose but if worsening renal function may need to consider to adjust med. Assessment & Plan (10/01/2022 9:51 AM EDT): Diabetes is controlled. Dx 01/2019 based on A1c 6.1%, fasting BS 157. -No results found for: HGBA1C -No results found for: GLUF, MICROALBUR, LDLCALC, CREATININE -Changes: -Hector/Arb: lisinopril 40mg -Statin therapy: Start rosuvastatin 20mg 10/01/2022. -Diabetic eye exam: [place] 09/2022. -Diabetic foot exam: 10/01/2022. -Continue lifestyle modifications -Continue metformin 500mg BID started 01/2019. Blood in urine 03/09/2012 Overview (05/09/2024): US with Dr. Barry 06/20/23 IMPRESSION: No significant finding within the kidneys. Multiple bilateral simple renal cysts for which no imaging follow-up is recommended. Cystoscopy 08/29/23 findings: Prostate bilobar prostatic urethral, bladder mucosa no suspicious bladder lesions Note with Dr. Hager, urology from 12/07/23 reviewed. Seen by [facility] 05/08/24, labs ordered, follow up 1 year Tobacco dependence syndrome 03/09/2012 Overview (10/01/2022): Will discuss with CDTM. Assessment & Plan (03/21/2023 10:29 AM EDT): Will discuss with CDTM. Assessment & Plan (12/02/2022 9:20 AM EDT): Will discuss with CDTM. Assessment & Plan (10/27/2022 5:40 PM EDT): From chart review after pt left -pt w hx of tobacco use -will need to f w PCP at next visit in 4 weeks to discuss cessation Assessment & Plan (10/01/2022 9:49 AM EDT): -Will report back to CDTM. Vitamin D deficiency 03/09/2012 Depressive disorder 11/25/2011 Overview (08/22/2024): Strongly encouraged to schedule appointment with therapy. -Restarting Zoloft 25mg daily. 10/01/2022 -Restart clonazepam 0.5mg prn, 10 tabs/month 10/01/2022 Assessment & Plan (10/31/2023 10:31 AM EDT): During IBH Consult Gume presenting with depressed mood, loss of interests/pleasure , changes in sleep difficulty falling asleep and difficulty staying asleep , change in appetite or weight reduce appetite, trouble concentrating, fatigue/loss of energy, hopelessness, worthlessness , excessive worry/anxiety, difficulty controlling worry, restless/keyed up/On edge, easily fatigued, difficulty concentrating/Mind going blank , and sleep disturbance difficulty falling asleep and difficulty staying asleep , and using in larger amounts or for longer than intended, spending a lot of time getting/using/recovering from use , recurrent use resulting in failure to fulfill major obligations at work/home/school , continued use, even when it causes interpersonal problems, continued use despite physical or psychological problem (potentially related or made worse by use) , tolerance , withdrawal sxs , in regard to Alcohol; for a period of 18+ mo, for all symptoms in the context of alcoholism, stress relationship, lack of informal and formal support,lack of outpatient services. PLAN: New/Additional Services needed Off-site services for Behavioral Health Integration Plan Internal Follow up with [facility], referral to [facility] txt External OP therapy referral and OP psychiatry Referral Patient Self Plan Patient to utilize skills provided in intervention , Patient to reach out to [facility] team as needed, and Patient to engage in OP therapy Assessment & Plan (03/21/2023 10:28 AM EDT): Strongly encouraged to schedule appointment with therapy. -Restarting Zoloft 25mg daily. 10/01/2022 -Restart clonazepam 0.5mg prn, 10 tabs/month 10/01/2022 Assessment & Plan (12/02/2022 9:19 AM EDT): Strongly encouraged to schedule appointment with therapy. -Restarting Zoloft 25mg daily. 10/01/2022 -Restart clonazepam 0.5mg prn, 10 tabs/month 10/01/2022 Assessment & Plan (10/01/2022 9:52 AM EDT): Strongly encouraged to schedule appointment with therapy. -Restarting Zoloft 25mg daily. 10/01/2022 -Restart clonazepam 0.5mg prn, 10 tabs/month 10/01/2022 Hypertension 11/25/2011 Overview (03/21/2023): Per cardiology note from 11/04/22, patient to discontinue chlorthalidone which patient reported previous awareness of. Notes that patient is to switch from metoprolol to carvedilol. -Continue lifestyle modifications -Continue Norvasc 10mg daily. Pt does not tolerate generic. -Continue carvedilol 12.5 bid -Continue lisinopril 40mg daily. Assessment & Plan (10/19/2024 4:54 PM EDT): Per cardiology note from 11/04/22, patient to discontinue chlorthalidone which patient reported previous awareness of. Notes that patient is to switch from metoprolol to carvedilol. -Continue lifestyle modifications -Continue Norvasc 10mg daily. Pt does not tolerate generic. -Continue carvedilol 12.5 bid -Continue lisinopril 40mg daily. Assessment & Plan (03/21/2023 10:43 AM EDT): Per cardiology note from 11/04/22, patient to discontinue chlorthalidone which patient reported previous awareness of. Notes that patient is to switch from metoprolol to carvedilol. -Continue lifestyle modifications -Continue Norvasc 10mg daily. Pt does not tolerate generic. -Continue carvedilol 12.5 bid -Continue lisinopril 40mg daily. Assessment & Plan (12/02/2022 9:19 AM EDT): Not controlled. PT had increased cr and hypokalemia so chlorthalidone discontinued 11/2022 -Continue lifestyle modifications -Continue Norvasc 10mg daily. Pt does not tolerate generic. -Continue metoprolo 25 BID. -Continue hydrochlorothiazide 25 daily -Continue lisinopril 40mg daily. Assessment & Plan (10/27/2022 5:28 PM EDT): Pt here with elevated BP at 150/100 But per pt and here BP at home since discharged from hospital BP has been always below < 140/90 -States only one previous reading of 141/92 -Reports to be complaint w current meds including BB,lisinopril and norvasc and now added from hospital chlorthalidone -advised to check daily BP and bring readings at next visit w PCP x 4 weeks and to f with airline security representative as well ---if actual elevated would need to eval to adjust dose of meds --may need to increase BB if HR tolerates Assessment & Plan (10/01/2022 9:49 AM EDT): Not controlled. -Continue lifestyle modifications -Will report back to CDTM. -Continue norvasc 10mg daily. Pt does not tolerate generic. -Continue metoprolo 25 BID. -Continue lisinopril 40mg daily. Backache 11/17/2011 Dyslipidemia 11/17/2011 Overview (10/19/2024): Lab Results Component Value Date CHOL 127 12/16/2023 TRIG 69 12/16/2023 TRIG 102 10/26/2022 HDL 42 12/16/2023 LDLCHOLCAL 72 12/16/2023 -continue lifestyle modification -continue atorvastatin 80mg Patient informed to resume atorvastatin (was held at [facility] discharge due to elevated LFTS which may be of patient's confusion) and to complete ordered follow up labs once he returned from vacation. Cardiology plans to add zetia if needed following completion of ordered labs. -ordered repeat FLP and HFP 10/19/24 Assessment & Plan (10/19/2024 4:53 PM EDT): Lab Results Component Value Date CHOL 127 12/16/2023 TRIG 69 12/16/2023 TRIG 102 10/26/2022 HDL 42 12/16/2023 LDLCHOLCAL 72 12/16/2023 -continue lifestyle modification -continue atorvastatin 80mg Patient informed to resume atorvastatin (was held at [facility] discharge due to elevated LFTS which may be of patient's confusion) and to complete ordered follow up labs once he returned from vacation. Cardiology plans to add zetia if needed following completion of ordered labs. -ordered repeat FLP and HFP 10/19/24 Assessment & Plan (03/21/2023 10:42 AM EDT): Lab Results Component Value Date CHOLESTEROL 172 10/26/2022 LDLCHOL 110 (H) 10/26/2022 TRIG 102 10/26/2022 HDLCHOL 42 10/26/2022 CHOLHDLRAT 4.1 10/26/2022 -continue lifestyle modifications -continue atorvastatin 80mg Patient informed to resume atorvastatin (was held at [facility] discharge due to elevated LFTS which may be of patient's confusion) and to complete ordered follow up labs once he returned from vacation. Cardiology plans to add zetia if needed following completion of ordered labs. 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 He has been referred multiple times but has never followed up consistently. Assessment & Plan (03/21/2023 10:28 AM EDT): - Continue Zoloft 25mg daily, started on 07/11/2020 - Pt would like to restart counseling, will do a referral for [facility]. He has been referred multiple times but has never followed up consistently. Assessment & Plan (12/02/2022 9:19 AM EDT): - Continue Zoloft 25mg daily, started on 07/11/2020 - Pt would like to restart counseling, will do a referral for [facility]. He has been referred multiple times but has never followed up consistently. Assessment & Plan (10/01/2022 8:50 AM EDT): - Continue Zoloft 25mg daily, started on 07/11/2020 - Pt would like to restart counseling, will do a referral for [facility]. He has been referred multiple times but has never followed up consistently. Benign neoplasm of anal canal 10/23/2008 10/01/2022 Encounters * This document contains information received from the source organization and may not represent a complete record from that organization. Date Type Department Care Team Description 01/31/2025 Telephone [facility] [address] [place] [id number] Beth Villela MD Call Back Request 01/21/2025 11:15 AM EDT Office Visit [address] [address] Beth Villela MD Type 2 diabetes mellitus with diabetic autonomic neuropathy, without long-term current use of insulin ([facility]) (Primary Dx); Hypertension, unspecified type; Dyslipidemia; Anemia, unspecified type; Tubular adenoma 01/21/2025 Travel 01/18/2025 Telephone [facility] [address] [place] [phone] Beth Villela MD CHART PREP 01/17/[address] [address] Beth Villela MD 12/18/2024 10:20 AM EDT Office Visit [facility] [address] [place] [phone] Bella Solano MD Acute low back pain due to trauma (Primary Dx); Acute neck pain 12/18/2024 Travel from Last 3 Months Immunizations Immunization Administration Dates Next Due Hep A, Adult 03/21/2023 Hep B, adult 11/08/2023,04/18/2023,03/21/2023 Influenza High-dose Quadriva lent Preservative Free 03/21/2023 Influenza injectable quadriv alent preservative free 05/25/2021,02/26/2019 Influenza, IIV3, injectable 05/25/2021, 9 Pneumococcal Conjugate PCV 20 12/02/2022 TD (adult), 2 Lf tetanus tox oid, preservative free, adsorbed 01/25/2006 Td (adult), unspecified 01/25/2006 Tdap 02/26/2019 Zoster, Recombinant 02/19/2022,12/18/2021 Social History Tobacco Use Types Packs/Day Years Used Date Smoking Tobacco: Never Passive Smoke Exposure: Never Smokeless Tobacco: Never Tobacco Cessation:Counseling Given: Not Answered Alcohol Use Standard Drinks/Week Comments Never 0 [...] Answer Date Recorded Patient Health Questionnaire-9 Score 13 01/21/2025 Patient Health Questionnaire-9 Score 13 01/21/2025 Last PHQ-9: Questionnaire Data Not on file 0 01/21/2025 Housing Stability Answer Date Recorded What is your housing situation today? I am not s ure 01/21/[address] you li ve. Do you have problems with any of the following? None of the above 01/21/2025 Food Insecurity Answer Date Recorded Within the past 12 months, y ou worried that your food would run out before you got money to buy more: Often true 01/21/2025 Within the past 12 months,th e food you bought just didn't last and you didn't have enough money to get more: Often true Transportation Answer Date Recorded In the past 12 months, has l ack of transportation kept you from medical appts, meetings, work or from getting things needed for daily living? No 01/21/2025 Utilities Answer Date Recorded In the past 12 months, has t he electric, gas, oil or water company threatened to shut off services in your home? I am not sure 01/21/2025 Depression Answer Date Recorded Patient Health Questionnaire-2 Score 6 01/21/2025 Internet Access Answer Date Recorded Internet Access Q1 I am not sure 01/21/2025 Internet Access Q2 I cannot afford it 01/21/2025 Sex and Gender Information Value Date Recorded Sex Assigned at Male 03/29/2022 10:19 AM EDT Legal Sex Male 10:19 AM EDT Gender Identity Male 03/29/2022 10:19 AM EDT Sexual Orientation Straight 03/29/2022 10 :19 AM EDT Last Filed Vital Signs Vital Sign Reading Time Taken Comments Blood Pressure 140/80 01/21/2025 11:41 AM EDT Pulse 75 01/21/2025 11:41 AM EDT Temperature 36.3 C (97.3 F) 01/21/2025 11:41 AM EDT Respiratory Rate 16 01/21/2025 11:4 1 AM EDT Oxygen Saturation 97% 01/21/2025 11: 41 AM EDT Inhaled Oxygen Concentration - - Weight 87.5 kg (192 lb 12.8 oz) 025 11:41 AM EDT Height 172.7 cm (5' 8 ) 12/18/2024 10:2 7 AM EDT Body Mass Index 29.32 12/18/2024 10:27 AM EDT Plan of Treatment Health Maintenance Due Date Last Done Comments CT Colonography 1958 FIT DNA/Cologuard 1958 FIT 1958 FOBT 1958 Sigmoidoscopy 1958 Alcohol/Substance Use Screening 1970 RSV Patients and Patients Aged 60 years or older (1 - Risk 60-74 years 1-dose series) 2018 Eye Exam 04/22/2023 04/22/2021 Colonoscopy 11/19/2024 11/20/2019 Colorectal Cancer Screening 11/19/2024 COVID-19 Vaccine ( season) 2025 05/25/2021, 08/24/2020 Influenza Vaccine (#1) 2025 , 05/25/2021, 05/25/2021, Additional history exists Diabetes: Hemoglobin A1C 04/23/2025 025, 01/18/2025, 10/19/2024, Additional history exists Depression Monitoring 07/24/2025 01/21/2025, 025 Diabetes: Urine Protein Screening 01/18/2026 01/18/2025, 12/22/2023 Lipid Panel 01/18/2026 01/18/2025, 11/27, 10/26/2022 Diabetes: Foot Exam 01/21/2026 01/21/2025, 01/21/2025, 01/21/2025, Additional history exists SDOH Screening 01/21/2026 01/21/2025 Tobacco Screening 01/21/2026 01/21/2025 DTaP/Tdap/Td Vaccines (2 - Td or Tdap) 02/26/2029 02/26/2019, 01/25/2006, 01/25/2006 Zoster Vaccines Completed 02/19/2022, 12/18/2021 Hepatitis C Screening Completed 10/26/2022, 019 Pneumococcal Vaccine: 50+ Years Completed 12/02/2022 Hepatitis A Vaccines Aged Out 03/21/2023 No long er eligible based on patient's age to complete this topic Hepatitis B Vaccines Completed 11/08/2023, 04/18/2023, 03/21/2023 HIB Vaccines Aged Out No longer eligi [...] patient's age to complete this topic Meningococcal Vaccine Aged Out No nicky ellen eligible based on patient's age to complete this topic RSV under 20 months Aged Out No longe r eligible based on patient's age to complete this topic Rotavirus Vaccines Aged Out No longer eligible based on patient's age to complete this topic Goals Goal Patient Goal Type Associated Problems Recent Progress Patient-Stated? Author Blood Pressure < 140/90 Blood Pressure 140/80(2024 11:41 AM EDT) No Waleska Stewart PharmLivan Record your blood pressure once per day Blood Pressure No Waleska Stewart PharmLivan Record Your Blood Sugar Daily General No Waleska Stewart PharmLivan Take your medication every day Lifestyle No Waleska Stewart, PharmD Hemoglobin A1c < 7.5 Result Component 7.5( 11:47 AM EDT) No Waleska Stewart PharmD Procedures Procedure Name Priority Date/Time Associated Diagnosis Comments POCT GLYCATED HEMOGLOBIN, TOTAL Routine 01/21/2025 11:47 AM EDT Type 2 diabetes mellitus with diabetic autonomic neuropathy, without long-term current use of insulin ([facility]) POCT GLUCOSE Routine 01/21/2025 11:44 AM EDT Type 2 diabetes mellitus with diabetic autonomic neuropathy, without long-term current use of insulin ([facility]/HCC) PSA, TOTAL WITH REFLEX TO PSA, FREE Routine 01/18/2025 8:30 AM EDT Type 2 diabetes mellitus with diabetic autonomic neuropathy, without long-term current use of insulin ([facility]/HCC) BASIC METABOLIC PANEL Routine 01/18/2025 8:30 AM EDT Type 2 diabetes mellitus with diabetic autonomic neuropathy, without long-term current use of insulin ([facility]/HCC) HEMOGLOBIN A1C Routine 01/18/2025 8:30 AM EDT Type 2 diabetes mellitus with diabetic autonomic neuropathy, without long-term current use of insulin ([facility]) LIPID PANEL, STANDARD Routine 01/18/2025 8:30 AM EDT Dyslipidemia HEPATIC FUNCTION PANEL Routine 01/18/2025 8:30 AM EDT Type 2 diabetes mellitus with diabetic autonomic neuropathy, without long-term current use of insulin ([facility]/HCC) ALBUMIN, RANDOM URINE W/CREATININE Routine 01/18/2025 8:30 AM EDT Type 2 diabetes mellitus with diabetic autonomic neuropathy, without long-term current use of insulin ([facility]) VITAMIN B12/FOLATE, SERUM PANEL Routine 01/18/2025 8:30 AM EDT Anemia, unspecified type IRON AND TOTAL IRON BINDING CAPACITY Routine 01/18/2025 8:30 AM EDT Anemia, unspecified type TSH W/REFLEX TO FT4 Routine 01/18/2025 8 :30 AM EDT Anemia, unspecified type FERRITIN Routine 01/18/2025 8:30 AM EDT Anemia, unspecified type CBC WITH AUTO DIFFERENTIAL Routine 01/18/2025 8:30 AM EDT Anemia, unspecified type HEPATITIS C AB W/REFL TO HCV RNA, QN, PCR Routine 10/26/2022 11:40 AM EDT Type 2 diabetes mellitus without complication, without long-term current use of insulin (CMS/HCC) DIABETES EYE EXAM Routine 04/22/2021 7:54 PM EST COLONOSCOPY Routine 11/20/2019 from Last 3 Months or Most Recently Relevant to Health Maintenance Results * (ABNORMAL) POCT HGB A1C (01/21/2025 11:47 AM EDT) Hemoglobin A1C 7.5(A) 4.0 - 5.7 % QC Media Lot # [id number] Lot# Expiration Date Blood 01/21/2025 11:4 7 AM EDT Beth Villela MD POINT OF CARE TEST ENTER/E DIT ORDERABLES Final Result * POCT Glucose (01/21/2025 11:44 AM EDT) Glucose Blood, POC 156 60 - 200 mg/dL QC Media Lot # [id number] Lot# Expiration Date 994, Blood Capillary blood specimen / Unknown 01/21/2025 11:44 AM EDT Beth Villela MD POINT OF CARE TEST ENTER/E DIT ORDERABLES Final Result * Vitamin B12 (Cobalamin) and Folate Panel, Serum (01/18/2025 8:30 AM EDT) Vitamin B12 253 200 - 900 pg/mL [facility] Comment:NORMAL 200-900 PG/ML INDETERMINATE 160-199 PG/ML DEFICIENT < 160 PG/ML Folate 10.7 > or = 4.0 ng/mL [facility] Comment:Reference Values:> o r = 4.0 ng/mL< 4.0 ng/mL suggests folate deficiency Methotrexate, aminopterin and folinic acid(leucovorin) are chemotherapeutic agents whose molecularstructures are similar to folate; therefore, the Architectfolate assay cannot be used for patients using these drugs. Blood Venous blood specimen / Unknown 01/18/2025 8:30 AM EDT 01/18/2025 11:51 AM EDT Beth Villela MD LAB BLOOD ORDERABLES Final Result Performing Organization Address [facility] Co de Phone Number [facility] [address] [place] [phone] * TSH with Reflex to Free T4 (01/18/2025 8:30 AM EDT) TSH reflex Free T4 0.68 0.32 - 4.0 uIU/mL [facility] Blood Venous blood specimen / Unknown 01/18/2025 8:30 AM EDT 01/18/2025 11:51 AM EDT Beth Villela MD LAB BLOOD ORDERABLES Final Result Performing Organization Address [facility] de Phone Number [facility] [address] [place] [phone] * PSA, Total With Reflex to PSA, Free (01/18/2025 8:30 AM EDT) PSA,Total (Free>4and<10) 3.96 0.00 - 4.00 ng/mL [facility] Comment:A Free PSA was not p erformed: The percentage of Free PSA can be used to enhance the differentiation of prostate cancer from benign prostatic disease in subjects whose PSA levels are between 4.0 and 10.0 ng/mL. For subjects whose PSA levels are below 4.0 or above 10.0 ng/mL, the risk of prostate cancer is determined on the basis of the PSA alone. Therefore the % Free PSA is recommended only for those subjects whose PSA levels are between 4.0 and 10.0 ng/mL.PSA methodology: Rossi Alinity i ChemiluminescentMicroparticle Immunoassay (CMIA) 01/18/2025 8:30 AM EDT 01/18/2025 11:51 AM EDT us Generic External Data Provider LAB BLOOD ORDERAB LES Final Result Performing Organization Address [facility] Co de Phone Number [facility] [address] [place] [phone] * Albumin, Random Urine W/Creatinine (01/18/2025 8:30 AM EDT) Creatinine, Urine 24.08 mg/dL [facility] Microalbumin Urine <5.0 mg/L [facility] Microalbum Creatinine Ratio Ur TNP <30 ug/mg cr [facility] Comment:Unable to calculate albumin/creatinine ratio due to lowmicroalbumin or creatinine result. Urine 01/18/2025 8:30 AM EDT 01/18/2025 11:49 AM EDT us Beth Villela MD LAB URINE ORDERABLES Final Result Performing Organization Address [facility] de Phone Number [facility] [address] [place] [phone] * (ABNORMAL) CBC auto differential (01/18/2025 8:30 AM EDT) White Blood Count 7.4 4.8 - 10.8 X10*3/uL [facility] Red Blood Count 4.65 4.60 - 5.80 X10*6/uL [facility] Hemoglobin 13.9(L) 14.0 - 18.0 g/dl [facility] Hematocrit 41.0(L) 42.0 - 52.0 % [facility] Mean Corpuscular Volume 88.2 80.0 - 98.0 fL [facility] Mean Corpuscular Hemoglobin 29.9 27.0 - 33.0 pg [facility] Mean Corpuscular HGB Conc 33.9 31.0 - 36.0 g/dl [facility] Red Cell Distribution Width 13.8 11.0 - 16.0 % [facility] Platelet Count 227 160 - 400 X10*3/uL [facility] Mean Platelet Volume 11.1 9.4 - 12.4 fL [facility] Neutrophils Percent Auto 60.8 45 - 73 % [facility] Imm Gran Pct Auto 0.3 0.0 - 0.4 % [facility] Lymphocytes Percent Auto 26.4 20 - 40 % [facility] Monocytes Percent Auto 8.2 2 - 11 % [facility] Eosinophils Percent Auto 3.5 0 - 4 % [facility] Basophils Percent Auto 0.8 0 - 2 % [facility] NRBC Pct Auto 0.0 0.0 - 0.2 /100WBC [facility] Neutrophils Absolute Auto 4.5 2.0 - 8.3 x10*3/uL [facility] Imm Gran Abs Auto 0.02 0.00 - 0.03 X10*3/uL [facility] Lymphocytes Absolute Auto 1.9 1.2 - 4.9 X10*3/uL [facility] Monocytes Absolute Auto 0.6 0.1 - 1.2 X10*3/uL [facility] Eosinophils Absolute Auto 0.3 0.0 - 0.4 X10*3/uL [facility] Basophils Absolute Auto 0.1 0.0 - 0.2 X10*3/uL [facility] NRBC Abs Auto 0.000 0.0 - 0.012 X10*3/uL [facility] Blood Venous blood specimen / Unknown 01/18/2025 8:30 AM EDT 01/18/2025 11:51 AM EDT us Beth Villela MD LAB BLOOD ORDERABLES Final Result [facility] [address] [place] [phone] * Iron And Total Iron Binding Capacity (01/18/2025 8:30 AM EDT) Iron 94 45 - 160 mcg/dL [facility] Total Iron Binding Capacity 287 228 - 428 mcg/dL [facility] Percent Iron Saturation 33 15 - 50 % [facility] Unsaturated Iron Binding 193 ug/dL [facility] Blood Venous blood specimen / Unknown 01/18/2025 8:30 AM EDT 01/18/2025 11:51 AM EDT Beth Villela MD LAB BLOOD ORDERABLES Final Result Performing Organization Address City/[facility] Co de Phone Number [facility] [address] [place] [phone] * (ABNORMAL) Hemoglobin A1c (01/18/2025 8:30 AM EDT) Hemoglobin A1c 7.1(H) <6.0 % [facility] Comment:Hemoglobin A1C Refer ence Range Adults: 4.8 - 6.0 % Non diabetic: < 6.0 % Goal: < 7.0 %Additional Action Suggested: > 8.0 %Note: Hemoglobin A1c results are invalid for patients with abnormal amounts of HbF. Blood transfusions may impact the HbA1c concentration in the patient sample. Estimated Average Glucose 157 mg/dL [facility] Comment:eAG = Estimated ave rage glucose which is %A1C expressed asaverage glucose, using the formula of the A9Y-[id number] Glucose study (ADAG), Diabetes Care, Vol.31,#8,Dec. 2007 Blood Venous blood specimen / Unknown 01/18/2025 8:30 AM EDT 01/18/2025 11:51 AM EDT Beth Villela MD LAB BLOOD ORDERABLES Final Result Performing Organization Address [facility] Co de Phone Number [facility] [address] [place] [phone] * Ferritin (01/18/2025 8:30 AM EDT) Ferritin 49 20 - 250 ng/mL [facility] Blood Venous blood specimen / Unknown 01/18/2025 8:30 AM EDT 01/18/2025 11:51 AM EDT Beth Villela MD LAB BLOOD ORDERABLES Final Result Performing Organization Address [facility] Co de Phone Number [facility] [address] [place] [phone] * Hepatic Function Panel (01/18/2025 8:30 AM EDT) Bilirubin, Total 0.6 0.0 - 1.0 mg/dL [facility] Bilirubin, Direct 0.2 0.0 - 0.5 mg/dL [facility] Aspartate Amino Transferase 26 5 - 37 U/L [facility] Alanine Aminotransferase 30 0 - 40 U/L [facility] Total Protein 7.5 6.5 - 8.0 g/dL [facility] Albumin Level 4.5 3.5 - 5.0 g/dL [facility] Alkaline Phosphatase 65 39 - 117 U/L [facility] Blood Venous blood specimen / Unknown 01/18/2025 8:30 AM EDT 01/18/2025 11:51 AM EDT Beth Villela MD LAB BLOOD ORDERABLES Final Result Performing Organization Address [facility] Co de Phone Number [facility] [address] [place] [phone] * Lipid Panel, Standard (01/18/2025 8:30 AM EDT) Triglycerides 90 <150 mg/dL [facility] Comment:Desirable Triglyceri de: less than 150 mg/dLBorderline High Triglyceride 150-199 mg/dLHigh Triglyceride: 200-499 mg/dLVery High Triglyceride: greater than or equal to 5OO mg/dL Cholesterol 154 <200 mg/dL [facility] Comment:Desirable Cholestero l: less than 200 mg/dLBorderline High Cholesterol: 200-239 mg/dLHigh Cholesterol: greater than 239 mg/dL LDL Cholesterol Calculated 92 <100 mg/dL [facility] Comment:Desirable LDL: less than 100 mg/dLNear Optimal/Above Optimal LDL: 110- 129 mg/dLBorderline High LDL: 130-159 mg/dLHigh LDL: 160-189 mg/dLVery High LDL: greater than or equal to 190 mg/dL HDL Cholesterol 44 >40 mg/dL [facility] Comment:Desirable HDL: great er than 40 mg/dL Note: This HDL assay may give artificially low results in patients with liver disease. Blood Venous blood specimen / Unknown 01/18/2025 8:30 AM EDT 01/18/2025 11:51 AM EDT us Beth Villela MD LAB BLOOD ORDERABLES Final Result [facility] [address] [place] [phone] * (ABNORMAL) Basic Metabolic Panel (01/18/2025 8:30 AM EDT) Sodium 141 135 - 145 mmol/L [facility] Potassium 3.6 3.3 - 5.1 mmol/L [facility] Chloride 106 96 - 108 mmol/L [facility] Carbon Dioxide 27 22 - 29 mmol/L [facility] Anion Gap 12 12 - 20 [facility] Urea Nitrogen (BUN) 20(H) 9 - 16 mg/dL [facility] Creatinine, Serum 1.17 0.5 - 1.4 mg/dL [facility] Estimated Glomerular Filt Rate >60 [facility] Comment:Chronic Kidney Disea se: Estimated GFR < 60 mL/min/1.49i1Adhikt Kidney Disease: Estimated GFR < 15 mL/min/1.73m2 Glucose 146(H) 60 - 115 mg/dL [facility] Calcium 9.1 8.4 - 10.2 mg/dL [facility] Blood Venous blood specimen / Unknown 01/18/2025 8:30 AM EDT 01/18/2025 11:51 AM EDT Beth Villela MD LAB BLOOD ORDERABLES Final Result [facility] [address] [place] [phone] * Hepatitis C Antibody with Reflex to HCV, RNA, Quantitative, Real-Time PCR (10/26/2022 11:40 AM EDT) Hepatitis C Antibody NON-REACT CAMI NON-REACT CAMI [facility] [place] [facility] Index 0.02 <1.00 [facility] [place] [facility] Comment: HCV antibody was non-reactive. There is no laboratory evidence of HCV infection. In most cases, no further action is required. However, if recent HCV exposure is suspected, a test for HCV RNA (test code 97967) is suggested. For additional information please refer to http://education.Dympol/faq/JQK12j8 (This link is being provided for informational/ educational purposes only.) Blood Venous blood specimen / Unknown 10/26/2022 11:40 AM EDT 10/26/2022 11:41 AM EDT Narrative [facility] - 10/30/2022 1:28 PM EDT FASTING:UNKNOWN FASTING: UNKNOWN Beth Villela MD LAB BLOOD ORDERABLES Final Result Performing Organization Address City/[facility] Co de Phone Number [facility] [address], [place] [address] [facility] [place] [facility] [address] [place] [address] * Diabetes Eye Exam (04/22/2021 7:54 PM EST) Eye Exam Normal Normal Comment:[facility] Historical Provider HEALTH MAINTENANCE Final Result * Colonoscopy (11/20/2019) Colonoscopy tubular adenoma with Dr. Drummond Historical Provider HEALTH MAINTENANCE Final Result from Last 3 Months or Most Recently Relevant to Health Maintenance Insurance [facility] STANDARD [facility] HALFWAY OPTIONS (HMO D-SNP) GENERIC TPL Care Teams Kinesiotherapist Relationship Specialty Start Date End Date [place], MD Beth [address] [place] [address] PCP - General Family Medicine 06/19/24 Waleska Rachel PharmD [address] [place] [address] Pharmacist Internal Medicine 10/20/22 Vinicio Garcia 100 [facility] [address] [place] [phone] Nephrology 07/22/24 Meghan Loomis [address] [facility] [address] [place] [address] Cardiology 11/02/24 ERNIE Devi [facility] 100 [facility] [address] [place] [address] Urology 05/09/24
--- OUTSIDE RECORDS SUMMARY | 2025-02-01 09:23 | XMS_ITS | Encounter Summary ---
Author Organization [employer] Address [address] [place] [address] [address] [place] [address] Care Team Providers Care Air Traffic Control Equipment Repairer Name Role Phone Waleska RachelD Unavailable Beth Villela MD Primary Care Provider [phone] Vinicio Garcia Unavailable Meghan Loomis Unavailable [phone] Reason for Visit * Reason Onset Date Comments Call Back Request 01/31/2025 Encounter Details Date Type Department Care Team (Late st Contact Info) Description 01/31/2025 Telephone [facility] [address] [place], [place] [phone] Beth Villela MD [address] [place], [place] [phone] Call Back Request Social History Tobacco Use Types Packs/Day Years [...] encounter Miscellaneous Notes * Telephone Encounter - Amber Downey RN - 01/31/2025 4:00 PM EDT Return call placed to the pt with [facility] broach operator #[id number] to inquire as to the referral that the pt was concerned with.The pt states that this is not the case and simply wanted to call in to inform PCP that he is scheduled for a colonoscopy at [facility] on 02/01 at 915 AM. The pt was also inquiring if PCP will receive the results of the test and RN assured that the results will be sent to and the pt contacted to inform of them. Pt stated understanding and had no further questions at this time. * Telephone Encounter - Tobin Renteria - 01/31/2025 1:40 PM EDT Tc from pt requesting to speak to her a nurse in regards to the referral. Information Services Assistant advised that pt needs to call the place he was referred too and make an apt. Pt is upset that he has to go out his wayand call. Now pt is requesting a call back to explain.. Contact pt at [phone] documented in this encounter Plan of Treatment Not on file documented as of this encounter Goals Goal Patient Goal Type Associated Problems Recent Progress Patient-Stated? Author Blood Pressure < 140/90 Blood Pressure 140/80(2024 11:41 AM EDT) No Piers-Gambl e, Waleska, PharmD Record your blood pressure once per day Blood Pressure No Piers-Gambl e, Waleska, PharmD Record Your Blood Sugar Daily General No Piers-Gambl e, Waleska, PharmD Take your medication every day Lifestyle No Piers-Gambl e, Waleska, PharmD Hemoglobin A1c < 7.5 Result Component 7.5( 11:47 AM EDT) No Piers-Gambl e, Waleska, PharmD documented as of this encounter Visit Diagnoses Not on filedocumented in this encounter Additional Health Concerns Assessment Noted Time PHQ-9 Depression Total Score: 13 025 12:17 PM EDT documented as of this encounter Care Teams Air Traffic Control Equipment Repairer Relationship Specialty Start Date End Date Beth Villela MD [address] [place] [address] PCP - General Family Medicine 06/19/24 Obinnas-Waleska Miller, PharmD [address] [place] [phone] Pharmacist Internal Medicine 10/20/22 Vinicio Garcia 100 [facility] [address] [place] [phone] Nephrology 07/22/24 Meghan Loomis [address] [facility] [address] [place] [address] Cardiology 11/02/24 ERNIE Devi [facility] [address] [place] [address] Urology 05/09/24 documented as of this encounter
== END 2025-02-01 10:08 | disposition home or self-care (01) ==
LOC: HO.HGI 08:52
PROVIDERS: PCP Family Medicine; Visit Provider Nurse Practitioner Family
DX: Z01.818 Encounter for other preprocedural examination (principal); Z12.11 Encounter for screening for malignant neoplasm of colon; Z86.0101 Personal history of adenomatous and serrated colon polyps; E11.65 Type 2 diabetes mellitus with hyperglycemia
CPT/HCPCS: 99203

== ENCOUNTER → 2025-02-01 08:51 | Outpatient (BNVA) | payer OTHER, SELFPAY | PROVIDERS: PCP Family Medicine; Visit Provider Nurse Practitioner Family | DX: Z01.818 Encounter for other preprocedural examination (principal); D12.6 Benign neoplasm of colon, unspecified; E11.65 Type 2 diabetes mellitus with hyperglycemia | CPT/HCPCS: 99202 ==

== ENCOUNTER 2025-04-02 07:25 | Day surgery (SDC) | payer OTHER, SELFPAY ==
--- OUTSIDE RECORDS SUMMARY | 2025-03-05 13:32 | XMS_ITS | Encounter Summary ---
Author Organization [facility] Address [address] [facility] [address] [address] [place] [address] Care Team Providers Care Granite Cutter Name Role Phone Beth Villela MD Primary Care Provider Waleska Rachel PharmD Unavailable Beth Villela MD Primary Care Provider Vinicio Garcia Unavailable Meghan Loomis Unavailable [phone] Encounter Details Date Type Department Care Team (Late st Contact Info) Description 07/06/2022 Abstract [facility] [address] [place], [place] [phone] Beth Villela MD [address] [place], [place] [phone] Social History Tobacco Use Types Packs/Day Years [...] on filedocumented in this encounter Care Teams Granite Cutter Relationship Specialty Start Date End Date Beth Villela MD [address] [place] [phone] PCP - General Family Medicine 05/30/18 06/18/24 Beth Villela MD [address] [place] [address] PCP - General Family Medicine 06/19/24 Waleska Rachel, MichaelD [address] [place] [address] Pharmacist Internal Medicine 10/20/22 Vinicio Garcia [address] [place] [phone] Nephrology 07/22/24 Meghan Loomis [address] [facility] [address] [place] [address] Cardiology 11/02/24 ERNIE Devi [facility] [address] [place] [address] Urology 05/09/24 documented as of this encounter
--- OUTSIDE RECORDS SUMMARY | 2025-03-05 13:32 | XMS_ITS | Encounter Summary ---
Author Organization [facility] Address [address] [facility] [address] [phone] Phone Care Team Providers Care Powerhouse Electrician Name Role Phone Manohar, Beth Carmichael MD Primary Care Provider Joan octaviano Encounter Details Date Type Department Care Team (Late st Contact Info) Description 11/24/2023 Office Communication [facility] [address] [facility] [address] [place] [address] Laurie Alejo [address] [place] [phone] Social History Tobacco Use Types Packs/Day Years [...] Laurie Alejo - 11/24/2023 8:12 AM EDT [facility] is expecting a script for Cholecalciferol (Vitamin D) 25 MCG (1000 UT) tablet But it hasn't been transmitted yet? Can you check into it? TY documented in this encounter Plan of Treatment Upcoming Encounters Date Type Department Care Team (Late st Contact Info) Description 05/13/2025 4:00 PM EST Office Visit [facility] [address] [facility] [address] [place] [phone] Vinicio Garcia MD [address] [phone] documented as of this encounter Visit Diagnoses Not on filedocumented in this encounter Care Teams Powerhouse Electrician Relationship Specialty Start Date End Date [place], Beth Carmichael MD [address] [place] [address] PCP - General Family Medicine 01/28/23 documented as of this encounter
--- OUTSIDE RECORDS SUMMARY | 2025-03-05 13:32 | XMS_ITS | Clinical Summary ---
Author Organization [employer] Address [address] [place] [address] Care Team Providers Care Staff Analyst Name Role Phone Waleska RachelD Unavailable Beth Villela MD Primary Care Provider [phone]- [phone] Vinicio Garcia Unavailable Meghan Loomis Unavailable [phone] Allergies No known active allergies Medications [...] neuropathy, without long-term current use of insulin (HCC) USE DIRECTED TO TEST BLOOD SUGAR TWICE DAILY 100 strip 5 Active lisinopril 40 MG tabletIndications :Hypertension, unspecified type TAKE 1 TABLET BY MOUTH EVERY MORNING 90 tablet 3 5 Active TRUEplus Lancets 33G miscIndications:T ype 2 diabetes mellitus with diabetic autonomic neuropathy, without long-term current use of insulin (HCC) USE DIRECTED TO TEST BLOOD SUGAR TWICE DAILY 100 each 11 5 Active ezetimibe (Zetia) 10 MG tabletIndications :Dyslipidemia Take 1 tablet (10 mg) by mouth Once per day. 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 90 tablet 3 5 Active Active Problems Problem Noted Date Diagnosed Date Alcohol use disorder, severe, dependence (CMS/HC C) 08/22/2024 Family history of prostate cancer 01/11/2024 Overview (10/19/2024): -followed by [facility], seen 01/04/24 -diagnostic cystoscopy normal 01/04/24 -will request PSA level from [facility], not available in [facility] 01/11/24 PSA 5.0 12/13/23 Assessment & Plan (10/19/2024 4:55 PM EDT): -followed by [facility], seen 01/04/24 -diagnostic cystoscopy normal 01/04/24 -will request PSA level from [facility], not available in [facility] 01/11/24 PSA 5.0 12/13/23 IGLESIA (generalized anxiety disorder) 12/22/2023 Gross hematuria 12/15/2023 Overview (01/11/2024): -Followed by [facility] -CT Abd/Pelis with and wo IV [...] freque ncy 11/28/2023 Overview (08/29/2024): -followed by [facility], seen 01/04/24 -diagnostic cystoscopy normal 01/04/24 - PSA 5.0 12/15/23 down from 5.05 April 2023, copy of lab received from urology -seen by [facility] 05/08/24, labs ordered, follow up 1 year -note from 08/29/24 reviewed Assessment & Plan (10/19/2024 4:55 PM EDT): -followed by [facility], seen 01/04/24 -diagnostic cystoscopy normal 01/04/24 - PSA 5.0 12/15/23 down from 5.05 April 2023, copy of lab received from [facility], labs ordered, follow up 1 year -note from 08/29/24 reviewed Low vitamin D level 11/11/2023 Overview (10/19/2024): No results found for: [id number] Alcohol use disorder 10/31/2023 Assessment & Plan [...] Health Integration Plan Internal Follow up with [facility] Patient Self Plan Patient to utilize skills provided in intervention , 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 -pt reports has all meds Refilled x now -has apt w wood planer -Dr Brady on 11/04/2022 and w cardiac [...] in 4 weeks Tubular adenoma 09/30/2022 Overview (02/05/2025): Tubular adenoma on 10/[address] Drummond. Repeat due in 10/2024. Seen by GI 02/05/25, colonoscopy scheduled Assessment & Plan (03/21/2023 10:30 AM EDT): [...] atorvastatin 80mg once daily -Diabetic eye exam: [place] 09/2022. -Diabetic foot exam: 01/21/25 -Continue lifestyle modifications -Continue current medications -Not currently on any medications, A1C and BGLs been controlled. Ordered all labs to evaluate 5/23/25 Assessment & Plan (10/19/2024 4:55 PM EDT): [...] atorvastatin 80mg once daily -Diabetic eye exam: [place] 09/2022. -Diabetic foot exam: 10/01/2022. -Continue lifestyle [...] Start rosuvastatin 20mg 10/01/2022. -Diabetic eye exam: [place] 09/2022. -Diabetic foot exam:10/01/2022. -Continue lifestyle modifications [...] Start rosuvastatin 20mg 10/01/2022. -Diabetic eye exam: [place] 09/2022. -Diabetic foot exam: 10/01/2022. -Continue lifestyle [...] Start rosuvastatin 20mg 10/01/2022. -Diabetic eye exam: [place] 09/2022. -Diabetic foot exam: 10/01/2022. -Continue lifestyle [...] [place], urology from 12/07/[address] [facility] 05/08/24, labs ordered, follow up 1 [...] intervention , Patient to reach out to [facility] team as needed, and Patient to engage [...] x 4 weeks and to f with wood planer as well ---if actual elevated would need [...] informed to resume atorvastatin (was held at [facility] [place] due to elevated LFTS which may [...] informed to resume atorvastatin (was held at [facility] discharge due to elevated LFTS which may [...] 01/11/2024 0 01/11/2024 Overview (01/11/2024): -followed by [facility], seen 01/04/24 -diagnostic cystoscopy normal 01/04/24 Senile dementia with depression ([facility]/HCC) 01/28/2023 11/28/2023 Ventricular fibrillation ([facility]) 01/28/2023 03/21/2023 Diabetes mellitus due to und erlying condition [...] Type Department Care Team Description 01/31/2025 Telephone [facility] [address] [place] [address] [phone] Beth Villela MD Call Back Request 01/21/2025 11:15 AM EDT Office Visit [facility] [address] [place] [address] [phone] Beth Villela MD Type 2 diabetes mellitus with diabetic autonomic neuropathy, without long-term current use of insulin ([facility]) (Primary Dx); Hypertension, unspecified type; Dyslipidemia; Anemia, unspecified type; Tubular adenoma 01/21/2025 Travel 01/18/2025 Telephone [facility] [address] [place] [address] [phone] Beth Villela MD CHART PREP 01/17/2025 Telephone [facility] [address] [place] [address] [phone] Beth Villela MD 12/18/2024 10:20 AM EDT Office Visit [facility] [address] [place] [address] [phone] Bella Solano MD Acute low back pain [...] Pressure 140/80(2024 11:41 AM EDT) No Waleska Stewart, PharmD Record your blood pressure once per day Blood Pressure No Waleska Stewart, PharmD Record Your Blood Sugar Daily General No Waleska Stewart, PharmD Take your medication every day Lifestyle No Waleska Stewart, PharmD Hemoglobin A1c < 7.5 Result Component 7.5( 11:47 AM EDT) No Waleska Stewart PharmD Procedures Procedure Name Priority Date/Time Associated Diagnosis Comments POCT GLYCATED HEMOGLOBIN, TOTAL Routine 01/21/2025 11:47 AM EDT Type 2 diabetes mellitus with diabetic autonomic neuropathy, without long-term current use of insulin ([facility]) POCT GLUCOSE Routine 01/21/2025 11:44 AM EDT Type 2 diabetes mellitus with diabetic autonomic neuropathy, without long-term current use of insulin ([facility]/HCC) PSA, TOTAL WITH REFLEX TO PSA, FREE Routine 01/18/2025 8:30 AM EDT Type 2 diabetes mellitus with diabetic autonomic neuropathy, without long-term current use of insulin (CMS/HCC) BASIC METABOLIC PANEL Routine 01/18/2025 8:30 AM EDT Type 2 diabetes mellitus with diabetic autonomic neuropathy, without long-term current use of insulin ([facility]/HCC) HEMOGLOBIN A1C Routine 01/18/2025 8:30 AM EDT Type 2 diabetes mellitus with diabetic autonomic neuropathy, without long-term current use of insulin ([facility]/HCC) LIPID PANEL, STANDARD Routine 01/18/2025 8:30 AM EDT Dyslipidemia HEPATIC FUNCTION PANEL Routine 01/18/2025 8:30 AM EDT Type 2 diabetes mellitus with diabetic autonomic neuropathy, without long-term current use of insulin ([facility]/HCC) ALBUMIN, RANDOM URINE W/CREATININE Routine 01/18/2025 8:30 AM EDT Type 2 diabetes mellitus with diabetic autonomic neuropathy, without long-term current use of insulin ([facility]/HCC) VITAMIN B12/FOLATE, SERUM PANEL Routine 01/18/2025 8:30 [...] Media Lot # [id number] Lot# Expiration Date ,026 Blood 01/21/2025 11:4 7 AM EDT Beth Villela MD POINT OF CARE TEST ENTER/E DIT ORDERABLES Final Result * POCT Glucose (01/21/2025 11:44 AM EDT) Glucose Blood, POC 156 60 - 200 mg/dL QC Media Lot # [id number] Lot# Expiration Date 356,026 Blood Capillary blood specimen / Unknown 01/21/2025 11:44 AM EDT Beth Villela MD POINT OF CARE TEST ENTER/E DIT ORDERABLES Final Result * Vitamin B12 (Cobalamin) and Folate Panel, Serum (01/18/2025 8:30 AM EDT) Vitamin B12 253 200 - 900 pg/mL [facility] Comment:NORMAL 200-900 PG/ML INDETERMINATE 160-199 PG/ML DEFICIENT < 160 PG/ML Folate 10.7 > or = 4.0 ng/mL [facility] Comment:Reference Values:> o r = 4.0 [...] BLOOD ORDERABLES Final Result Performing Organization Address City/[facility] Co de Phone Number [facility] [address] [place] [phone] * TSH with Reflex to Free T4 (01/18/2025 8:30 AM EDT) TSH reflex Free T4 0.68 0.32 - 4.0 uIU/mL [facility] Blood Venous blood specimen / Unknown 01/18/2025 8:30 AM EDT 01/18/2025 11:51 AM EDT Beth Villela MD LAB BLOOD ORDERABLES Final Result Performing Organization Address [facility] de Phone Number [facility] [address] [place] [phone] * PSA, Total With Reflex to PSA, Free (01/18/2025 8:30 AM EDT) PSA,Total (Free>4and<10) 3.96 0.00 - 4.00 ng/mL [facility] Comment:A Free PSA was not p [...] are between 4.0 and 10.0 ng/mL.PSA methodology: Duriana Alinity i ChemiluminescentMicroparticle Immunoassay (CMIA) 01/18/2025 8:30 AM EDT 01/18/2025 11:51 AM EDT us Generic External Data Provider LAB BLOOD ORDERAB LES Final Result Performing Organization Address [facility]/ZIP Co de Phone Number [facility] [address] [place] [address] [phone] * Albumin, Random Urine W/Creatinine (01/18/2025 8:30 AM EDT) Creatinine, Urine 24.08 mg/dL [facility] Microalbumin Urine <5.0 mg/L [facility] Microalbum Creatinine Ratio Ur TNP <30 ug/mg cr [facility] Comment:Unable to calculate albumin/creatinine ratio due to lowmicroalbumin or creatinine result. Urine 01/18/2025 8:30 AM EDT 01/18/2025 11:49 AM EDT us Beth Villela MD LAB URINE ORDERABLES Final Result Performing Organization Address [facility]/ZIP Co de Phone Number [facility] [address] [place] [address] [phone] * (ABNORMAL) CBC auto differential (01/18/2025 8:30 AM EDT) White Blood Count 7.4 4.8 - 10.8 X10*3/uL [facility] Red Blood Count 4.65 4.60 - 5.80 X10*6/uL [facility] Hemoglobin 13.9(L) 14.0 - 18.0 g/dl [facility] Hematocrit 41.0(L) 42.0 - 52.0 % [facility] Mean Corpuscular Volume 88.2 80.0 - 98.0 fL [facility] Mean Corpuscular Hemoglobin 29.9 27.0 - 33.0 pg [facility] Mean Corpuscular HGB Conc 33.9 31.0 - 36.0 g/dl [facility] Red Cell Distribution Width 13.8 11.0 - 16.0 % [facility] Platelet Count 227 160 - 400 X10*3/uL [facility] Mean Platelet Volume 11.1 9.4 - 12.4 fL [facility] Neutrophils Percent Auto 60.8 45 - 73 % [facility] Imm Gran Pct Auto 0.3 0.0 - 0.4 % [facility] Lymphocytes Percent Auto 26.4 20 - 40 % [facility] Monocytes Percent Auto 8.2 2 - 11 % [facility] Eosinophils Percent Auto 3.5 0 - 4 % [facility] Basophils Percent Auto 0.8 0 - 2 % [facility] NRBC Pct Auto 0.0 0.0 - 0.2 /100WBC [facility] Neutrophils Absolute Auto 4.5 2.0 - 8.3 x10*3/uL [facility] Imm Gran Abs Auto 0.02 0.00 - 0.03 X10*3/uL [facility] Lymphocytes Absolute Auto 1.9 1.2 - 4.9 X10*3/uL [facility] Monocytes Absolute Auto 0.6 0.1 - 1.2 X10*3/uL [facility] Eosinophils Absolute Auto 0.3 0.0 - 0.4 X10*3/uL [facility] Basophils Absolute Auto 0.1 0.0 - 0.2 X10*3/uL [facility] NRBC Abs Auto 0.000 0.0 - 0.012 X10*3/uL [facility] Blood Venous blood specimen / Unknown 01/18/2025 8:30 AM EDT 01/18/2025 11:51 AM EDT us Beth Villela MD LAB BLOOD ORDERABLES Final Result [facility] [address] [place] [phone] * Iron And Total Iron Binding Capacity (01/18/2025 8:30 AM EDT) Iron 94 45 - 160 mcg/dL [facility] Total Iron Binding Capacity 287 228 - 428 mcg/dL [facility] Percent Iron Saturation 33 15 - 50 % [facility] Unsaturated Iron Binding 193 ug/dL [facility] Blood Venous blood specimen / Unknown 01/18/2025 8:30 AM EDT 01/18/2025 11:51 AM EDT Beth Villela MD LAB BLOOD ORDERABLES Final Result Performing Organization Address [facility]/ZIP Co de Phone Number [facility] [address] [place] [phone] * (ABNORMAL) Hemoglobin A1c (01/18/2025 8:30 AM EDT) Hemoglobin A1c 7.1(H) <6.0 % [facility] Comment:Hemoglobin A1C Refer ence Range Adults: 4.8 - 6.0 % Non diabetic: < 6.0 % Goal: < 7.0 %Additional Action Suggested: > 8.0 %Note: Hemoglobin A1c results are invalid for patients with abnormal amounts of HbF. Blood transfusions may impact the HbA1c concentration in the patient sample. Estimated Average Glucose 157 mg/dL [facility] Comment:eAG = Estimated ave rage glucose which is %A1C expressed asaverage glucose, using the formula of the [id number]-DbcltjqPzddjpv Glucose study (ADAG), Diabetes Care, Vol.31,#8,Dec. 2007 Blood Venous blood specimen / Unknown 01/18/2025 8:30 AM EDT 01/18/2025 11:51 AM EDT Beth Villela MD LAB BLOOD ORDERABLES Final Result Performing Organization Address [facility]/ZIP Co de Phone Number [facility] [address] [place] [phone] * Ferritin (01/18/2025 8:30 AM EDT) Ferritin 49 20 - 250 ng/mL [facility] Blood Venous blood specimen / Unknown 01/18/2025 8:30 AM EDT 01/18/2025 11:51 AM EDT Beth Villela MD LAB BLOOD ORDERABLES Final Result Performing Organization Address [facility] Co de Phone Number [facility] [address] [place] [address] [phone] * Hepatic Function Panel (01/18/2025 8:30 AM EDT) Bilirubin, Total 0.6 0.0 - 1.0 mg/dL [facility] Bilirubin, Direct 0.2 0.0 - 0.5 mg/dL [facility] Aspartate Amino Transferase 26 5 - 37 U/L [facility] Alanine Aminotransferase 30 0 - 40 U/L [facility] Total Protein 7.5 6.5 - 8.0 g/dL [facility] Albumin Level 4.5 3.5 - 5.0 g/dL [facility] Alkaline Phosphatase 65 39 - 117 U/L [facility] Blood Venous blood specimen / Unknown 01/18/2025 8:30 AM EDT 01/18/2025 11:51 AM EDT Beth Villela MD LAB BLOOD ORDERABLES Final Result Performing Organization Address [facility] Co ne Phone Number [facility] [address] [place] [address] [phone] * Lipid Panel, Standard (01/18/2025 8:30 AM EDT) Triglycerides 90 <150 mg/dL [facility] Comment:Desirable Triglyceri de: less than 150 mg/dLBorderline High Triglyceride 150-199 mg/dLHigh Triglyceride: 200-499 mg/dLVery High Triglyceride: greater than or equal to 5OO mg/dL Cholesterol 154 <200 mg/dL [facility] Comment:Desirable Cholestero l: less than 200 mg/dLBorderline High Cholesterol: 200-239 mg/dLHigh Cholesterol: greater than 239 mg/dL LDL Cholesterol Calculated 92 <100 mg/dL [facility] Comment:Desirable LDL: less than 100 mg/dLNear Optimal/Above Optimal LDL: 110- 129 mg/dLBorderline High LDL: 130-159 mg/dLHigh LDL: 160-189 mg/dLVery High LDL: greater than or equal to 190 mg/dL HDL Cholesterol 44 >40 mg/dL [facility] Comment:Desirable HDL: great er than 40 mg/dL Note: This HDL assay may give artificially low results in patients with liver disease. Blood Venous blood specimen / Unknown 01/18/2025 8:30 AM EDT 01/18/2025 11:51 AM EDT Beth Villela MD LAB BLOOD ORDERABLES Final Result [facility] [address] [place] [address] [phone] * (ABNORMAL) Basic Metabolic Panel (01/18/2025 8:30 AM EDT) Sodium 141 135 - 145 mmol/L [facility] Potassium 3.6 3.3 - 5.1 mmol/L [facility] Chloride 106 96 - 108 mmol/L [facility] Carbon Dioxide 27 22 - 29 mmol/L [facility] Anion Gap 12 12 - 20 [facility] Urea Nitrogen (BUN) 20(H) 9 - 16 mg/dL [facility] Creatinine, Serum 1.17 0.5 - 1.4 mg/dL [facility] Estimated Glomerular Filt Rate >60 [facility] Comment:Chronic Kidney Disea se: Estimated GFR < 60 mL/min/1.72m9Gwkezh Kidney Disease: Estimated GFR < 15 mL/min/1.73m2 Glucose 146(H) 60 - 115 mg/dL [facility] Calcium 9.1 8.4 - 10.2 mg/dL [facility] Blood Venous blood specimen / Unknown 01/18/2025 8:30 AM EDT 01/18/2025 11:51 AM EDT Beth Villela MD LAB BLOOD ORDERABLES Final Result [facility] [address] [place] [phone] * Hepatitis C Antibody with Reflex to HCV, RNA, Quantitative, Real-Time PCR (10/26/2022 11:40 AM EDT) Hepatitis C Antibody NON-REACT CAMI NON-REACT CAMI [employer] Index 0.02 <1.00 [facility] [place] [facility] Comment: HCV antibody was non-reactive. There is no laboratory evidence of HCV infection. In most cases, no further action is required. However, if recent HCV exposure is suspected, a test for HCV RNA (test code 25434) is suggested. For additional information please refer to http://education.ZhenXin/faq/BAR28k0 (This link is being provided for informational/ educational purposes only.) Blood Venous blood specimen / Unknown 10/26/2022 11:40 AM EDT 10/26/2022 11:41 AM EDT Narrative [facility] - 10/30/2022 1:28 PM EDT FASTING:UNKNOWN FASTING: UNKNOWN Beth Villela MD LAB BLOOD ORDERABLES Final Result Performing Organization Address City/[facility] Co de Phone Number [facility] [address], [facility] [place] [phone] [employer] [place] [employer] [address] [place] [phone] * Diabetes Eye Exam (04/22/2021 7:54 PM EST) Eye Exam Normal Normal Comment:[facility] Historical Provider HEALTH MAINTENANCE Final Result * Colonoscopy (11/20/2019) Colonoscopy tubular adenoma with Dr. Drummond Historical Provider HEALTH MAINTENANCE Final Result from Last 3 Months or Most Recently Relevant to Health Maintenance Insurance [facility] STANDARD [facility] OPTIONS (HMO D-SNP) GENERIC TPL Care Teams Staff Analyst Relationship Specialty Start Date End Date Manohar, MD Beth [address] [place] [address] PCP - General Family Medicine 06/19/24 Waleska Rachel PharmD [address] [place] [address] Pharmacist Internal Medicine 10/20/22 Vinicio Garcia 100 [facility] [address] [place] [id number] Nephrology 07/22/24 Meghan Loomis 33[address] [facility] [address]ND FLOOR [address] [place] [address] Cardiology 11/02/[address] [facility] Urology 100 [facility] [address] [place] [address] Urology 05/09/24
--- OUTSIDE RECORDS SUMMARY | 2025-03-05 13:32 | XMS_ITS | Encounter Summary ---
Author Organization [facility] Address [address] [place] [address] Care Team Providers Care General Production Worker Name Role Phone Unavailable Primary Care Provider Unavailabl e Encounter Details Date Type Department Care Team (Late st Contact Info) Description 05/10/2024 Lab Requisition [facility] [address] [facility] [place] [address] Will Stockton PA [address] [place] [id number] Other microscopic hematuria Social History Tobacco Use [...] grade urothelial carcinoma. 06/01/2024 4:49 PM EST [facility] Clinical Information [id number] Urine cytology w/reflex Urovysion. 06/01/2024 4:49 PM EST [facility] Gross Description A. Urine, Voided, : [id number] Recd 1 TP slide 06/01/2024 4:49 PM EST [facility] Disclaimer Unless otherwise specified, all tissue is 10% NB formalin fixed and paraffin embedded. Technical pathology services provided by [facility] Urology at [address] [facility] [address], [place] [address] (CLIA #[id number]/S balaji Hudson MD, Asian Art Curator) 06/01/2024 4:49 PM EST [facility] Tissue Urine specimen from urethra / Unknown 05/08/2024 05/10/2024 10:00 AM EST us Will KLEIN LAB PATHOLOGY ORDERAB LES Final Result [facility] [address] [place] [address], documented in this encounter Visit Diagnoses Diagnosis Other microscopic hematuria documented in this encounter
--- OUTSIDE RECORDS SUMMARY | 2025-03-05 13:32 | XMS_ITS | Clinical Summary ---
Author Organization [address] Address [address] [place] [address] Phone Care Team Providers Care C2 Tactical Analysis Technician Name Role Phone Unavailable Primary Care Provider [...] Date Last Done Comments Colorectal Cancer Screening: Colonoscopy 1958 DTaP,Tdap,and Td Vaccines (1 - Tdap) 1977 Pneumococcal Vaccine: 50+ Ye ars (1 of 1 - PCV) 2008 Zoster Vaccines (1 of 2) 2008 Abdominal Aortic Aneurysm (A AA) Screen 06/24/2023 Cholesterol Screening (Lipid Panel) 06/24/2023 Falls Risk Assessment 06/24/2023 Hepatitis C [...]
--- OUTSIDE RECORDS SUMMARY | 2025-03-05 13:32 | XMS_ITS | Clinical Summary ---
Author Organization [facility] Address [address] [address] Phone Care Team Providers Care Registered Safety Engineer Name Role Phone [place] marie MD Primary Care Provider U navailable Allergies [...] depression 01/28/2023 Atherosclerotic heart diseas e of nez perce coronary artery with angina pectoris 01/28/2023 Chronic kidney disease, stage 2 (mild) Hypertensive chronic kidney disease 01/28/2023 Social History Tobacco Use Types Packs/Day Years [...] Visit [facility] [address] [address] Vinicio Garcia MD [address] [address] Health Maintenance Due Date Last Done Comments [...] age to complete this topic Insurance Medicaid [place] Care Teams Registered Safety Engineer Relationship Specialty Start Date End Date [place], Beth Carmichael MD [address] [place] [address] PCP - General Family Medicine 01/28/23
--- OUTSIDE RECORDS SUMMARY | 2025-03-05 13:32 | XMS_ITS | Encounter Summary ---
Author Organization [facility] Address [address] [place] [address] Care Team Providers Care Graphic Pre Press Trades Worker Name Role Phone Unavailable Primary Care Provider Unavailabl e Encounter Details Date Type Department Care Team (Late st Contact Info) Description 05/07/2024 Lab Requisition [facility] [address] [place] [address] Milan Clarke MD [address] [place] [address] Gross hematuria Social History Tobacco Use Types [...] high-grade urothelial carcinoma. 05/18/2024 5:55 PM EST [facility] Clinical Information [id number] Urine cytology w/reflex UroVysion. 05/18/2024 5:55 PM EST [facility] Gross Description A. Urine, Voided, : [id number] recd 1 TP slide. 05/18/2024 5:55 PM EST [facility] Disclaimer Unless otherwise specified, all tissue is 10% NB formalin fixed and paraffin embedded. Technical pathology services provided by [facility] Urology at [address] [facility] [address], [place] [address] (CLIA #[id number]/S balaji Hudson MD, Upholsterer Outside) 05/18/2024 5:55 PM EST [facility] Tissue Urine specimen from urethra / Unknown 05/01/2024 05/07/2024 10:50 AM EST us Milan Clarke MD LAB PATHOLOGY ORDERABLES Fi nal Result [facility] [address] [place] [address], documented in this encounter Visit Diagnoses Diagnosis Gross hematuria documented in this encounter
--- OUTSIDE RECORDS SUMMARY | 2025-03-05 13:32 | XMS_ITS | Encounter Summary ---
Author Organization [employer] Address [address] [facility] [employer] [address] [place] [address] Care Team Providers Care Pulpwood Contractor Name Role Phone Beth Villela MD Primary Care Provider + [phone] Waleska Rachel PharmD Unavailable [phone] Beth Villela MD Primary Care Provider + [phone] Vinicio Garcia Unavailable Meghan Loomis Unavailable [phone] Encounter Details Date Type Department Care Team (Late st Contact Info) Description 03/23/2023 Orders Only [facility] MEDICINE [address] [place], [place] [phone] Beth Villela MD [address] [place], [place] [phone] Social History Tobacco Use Types Packs/Day Years Used Date Smoking Tobacco: Never Passive Smoke Exposure: Never Smokeless Tobacco: Never Housing Stability Answer Date Recorded What is your housing situation today? I do not have housing (Staying with others, in a hotel, in a long-term, living outside on the street, on a [...] on filedocumented in this encounter Care Teams Pulpwood Contractor Relationship Specialty Start Date End Date Beth Villela MD [address] [place] [address] PCP - General Family Medicine 05/30/18 06/18/24 Beth Villela MD [address] [place] [address] PCP - General Family Medicine 06/19/24 Waleska Rachel, MichaelD [address] [place] [address] Pharmacist Internal Medicine 10/20/22 Vinicio Garcia 100 [facility] [address] [phone] Nephrology 07/22/24 Ebonie Meghan L [address] [facility] 2ND [address] [place] [address] Cardiology 11/02/24 ERNIE Devi [facility] Urology [address] [place] [address] Urology 05/09/24 documented as of this encounter
--- OUTSIDE RECORDS SUMMARY | 2025-03-05 13:32 | XMS_ITS | Clinical Summary ---
Author Organization [facility] Address [address] [place] [address] [place] [address] Phone Care Team Providers Care Head Of English Name Role Phone Manohar, Beth Cuba MD [...] file Medical Devices Not on file Insurance [facility] C3 ACO C3 ACO C3 ACO C[address] [place] [address] [place] [address] C3 ACO Care Teams Head Of English Relationship Specialty Start Date End Date Manohar, Beth Cuba MD [address] [place] [address] PCP - General Family Medicine 10/13/22 Additional Source Comments The information contained in this document represents components of the legal health record. It is not the complete legal health record.[facility]
--- NOTE | 2025-03-29 11:05 | HO.ANESPROP2 ---
Documented by User: Beth Gomez NP 04/01/25 10:29 HPI - Anesthesia Eval Consult details Narrative: 65 yr old male for colonoscopy H/O Vifb arrest/[place] in 2022: on plavix, s/p LAURA to D2 with residual 70% stenosis to D2 on ostium; follows [facility] cardiology; last visit 10/30/24, his only concerns was ED, viagra was added, stable cardiac symptoms. PMF Active Problems Active Problems: All Active Problems Diabetes (Acute) Tubular adenoma of colon (Acute) Colon cancer screening (Acute) Screening PSA (prostate specific antigen) (Acute) Gross hematuria (Acute) Past Medical History Medical History Diabetes Tubular adenoma of colon Colon cancer screening HTN (hypertension) Heart attack Family History Family History Mother Heart disease Father Heart disease Surgical History Surgical History Stented coronary artery No pertinent past surgical history Social History Social History Alcohol intake: current Alcohol intake frequency: holidays/special occasions only Patient Tobacco Use Status: Former Tobacco user Use of substances other than those prescribed or required for medical reasons: No Are you DNR?: No Advance Directives: No Advance Directives Information Provided: Yes Meds Allergies Allergy/AdvReac Type Severity Reaction Status Date / Time No Known Allergies Allergy Mild NOT Verified 02/01/25 09:10 APPLICABLE Home Medications ?Medication ?Instructions ?Recorded ?Confirmed ?Last Taken ?Type amlodipine 10 mg tablet (Norvasc) 10 mg PO DAILY 02/23/23 04/02/25 04/02/25 History aspirin 81 mg tablet,delayed 81 mg PO DAILY 02/23/23 02/01/25 Unknown History release lisinopril 40 mg tablet 40 mg PO QAM 02/23/23 02/01/25 Unknown History metoprolol tartrate 25 mg tablet 25 mg PO BID 02/23/23 02/01/25 Unknown History atorvastatin 80 mg tablet 80 mg PO DAILY 07/14/23 02/01/25 Unknown History carvedilol 12.5 mg tablet 12.5 mg PO BID 07/14/23 04/02/2525 History clopidogrel 75 mg tablet 75 mg PO DAILY 07/14/23 04/02/25 03/31/25 History Exam Pertinent Lab Results Pertinent Lab Results: Laboratory Tests 01/18/25 08:30 WBC 7.4 RBC 4.65 Hgb 13.9 L Hct 41.0 L Plt Count 227 Sodium 141 Potassium 3.6 BUN 20 H Creatinine 1.17 Narrative Narrative: EKG 08/2024 Normal sinus rhythm, rate 69 Left anterior fasciular block Cannot rule out inferior infarct cite on or before 02/04/24 Abnormal ECG, no significant change found when compared with ECG 02/04/24 ECHO 2022 Technically diffiuclt study Left ventricular size is normal. Left ventricular wall thickness is mild to moderately increased in a pattern of concentric hypertrophy. Left ventricular systolic function is normal. LVEF visually estimated 60-70%. Basal interior and inferiolateral mars are akinetic. The apical septum and apical anterior wall appear hypokinetic. There is mild cavity obliteration without evidence of obstruction. Diastolic function is probably normal. Right ventricular size and function appear grossly normal. Normal biatrial size. No significant valve dysfunction. 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 There was a stenosis 70% at the ostium of D2 but we decided not to treat it as not to compromist the LAD and the culprit was mid D2. Normal LV function. Normal LVEDP. Documented by User: Jim [place] MD 04/02/25 09:29 [facility] Past Medical History Medical History Diabetes Tubular adenoma of colon Colon cancer screening HTN (hypertension) Heart attack Family History Family History Mother Heart disease Father Heart disease Family history of problems with anesthesia: No Surgical History Surgical History Stented coronary artery No pertinent past surgical history History of Problems with Anesthesia: No Social History Social History Alcohol intake: current Alcohol intake frequency: holidays/special occasions only Patient Tobacco Use Status: Former Tobacco user Use of substances other than those prescribed or required for medical reasons: No Are you DNR?: No Advance Directives: No Advance Directives Information Provided: Yes Meds Allergies Allergy/AdvReac Type Severity Reaction Status Date / Time No Known Allergies Allergy Mild NOT Verified 02/01/25 09:10 APPLICABLE Home Medications ?Medication ?Instructions ?Recorded ?Confirmed ?Last Taken ?Type amlodipine 10 mg tablet (Norvasc) 10 mg PO DAILY 02/23/23 04/02/25 04/02/25 History aspirin 81 mg tablet,delayed 81 mg PO DAILY 02/23/23 02/01/25 Unknown History release lisinopril 40 mg tablet 40 mg PO QAM 02/23/23 02/01/25 Unknown History metoprolol tartrate 25 mg tablet 25 mg PO BID 02/23/23 02/01/25 Unknown History atorvastatin 80 mg tablet 80 mg PO DAILY 07/14/23 02/01/25 Unknown History carvedilol 12.5 mg tablet 12.5 mg PO BID 07/14/23 04/02/25 04/02/25 History clopidogrel 75 mg tablet 75 mg PO DAILY 07/14/23 04/02/25 03/31/25 History Exam Exam Date and Time: 04/02/25 Airway Mallampati Class: III TM Dist: >3cm Neck ROM: Full Heart: rrr Lungs: unlabored Assessment and Plan Assessment Anesthesia Assessment: Anesthesia Plan Discussed and Chart Reviewed Final Anesthetic Review Family History of Problems with Anesthesia: No History of Problems with Anesthesia: No NPO: Yes ASA Class: III Final Preanesthetic Review: No Changes in Pt Med Stat, Meds/Allgs Chart Reviewed, Consent Obtained/Reviewed and Anes Risks/Benef Reviewed Patient Risk: Intermediate Procedure Risk: Low Anesthetic Plan Anesthetic Plan: MAC: Disposition: Standard PACU
--- NOTE | 2025-04-02 07:46 | MHC.SHP ---
Pre-Procedural Eval Section A - 24 Hr Update-Section A only Date of Service: 04/02/25 Section B - Complete if H&P > 30 days Chief Complaint: Benign neoplasm of colon,screening Relevant Family History (Specify if Yes): No Relevant Social History: None Present Medications: see Short Stay Collaborative assessment Medical History: Significant History (Diabetes Tubular adenoma of colon Colon cancer screening HTN (hypertension) Heart attack) History of Previous Operations: Relevant previous surgery/procedure and date(s) (colonoscopy) Allergies: Allergies Allergy/AdvReac Type Severity Reaction Status Date / Time No Known Allergies Allergy Mild NOT Verified 02/01/25 09:10 APPLICABLE Review of Systems Sugical H&P ROS: Negative: Constitution, Cardiovascular, Respiratory, Neurological, Psychiatric, Hem-Onc, Allergic/Immunologic, Gastrointestinal, Genitourinary, Musculoskeletal, Integumentary, Endocrine and Eyes/Ears/Nose/Throat Exam Surgical H&P Exam: Normal: HEENT, Normal: Heart, Normal: Lungs, Normal: Extremities, Normal: Abdomen, Normal: Skin and Normal: Neurological Plan Diagnosis/Plan: Unchanged I have reviewed the history and physical and performed a pertinent physical examination on my patient. No changes have occurred unless specified. Time Spent With Patient Time: Total time managing care of this patient today ____ minutes.
[2025-04-02 08:11] VITALS: BMI 28.3
[2025-04-02 08:19] VITALS: BP 136/92; PULSE 92; RESP 16; TEMP 36.6; O2SAT 99
[2025-04-02] MEDS: Lactated Ringers 1,000 ML 100 ML IVCONT (08:32)
--- NOTE | 2025-04-02 09:20 | P.OPN-COLO_ITS ---
Colonoscopy Operative Note Operative Note Date of Service: 04/02/25 Narrative: Operative Information Procedure Description: Colonoscopy Indication: screening Anesthesia: MAC COLONOSCOPY Instrument: Olympus variable stiffness pediatric scope 190L Colonoscopy Monitoring: Vital signs and clinical assessment, continuous EKG monitoring, Pulse oximetry, Carbon Dioxide monitoring and blood pressure monitoring were done throughout the procedure. Colon withdrawal time was 14 minutes. Procedure: The patient was placed in the left lateral decubitis position and pre-procedure medications were administered. After a digital rectal examination of the ano-rectum, the video colonoscope was inserted into the rectum and advanced through the colon to the cecum/TI. The colonoscope was slowly withdrawn in a retrograde panoramic fashion and the colon mucosa was carefully examined including a retroflexed view of the rectum. Findings and interventions are described below. Procedure Difficulty: easy Findings: Terminal Ileum-normal Cecum: sessile polyp 6-8 mm raised with eleview and removed with cold snare, 3-5 mm sessile polyp removed with cold forceps Ascending Colon:mild diverticulosis, x 1 sessile polyp 4-5 mm removed with cold forceps, x 2 sessile polyps 6-7 mm removed with cold snare Transverse Colon -normal Descending Colon: x 2 sessile polyps 6-8 mm removed with cold snare Sigmoid Colon: moderate diverticulosis Rectum: Retroflexion with small internal hemorrhoids seen, grade I Anorectum - normal Intervention: cold snare and eleivew, cold snare, cold forceps Colon preparation: [employer] Bowel Preparation Scale Right colon; 2 Transverse colon: 2 Left colon; 2 (0 = Unprepared colon segment with mucosa not seen due to solid stool that cannot be cleared. 1 = Portion of mucosa of the colon segment seen, but other areas of the colon segment not well seen due to staining, residual stool and/or opaque liquid. 2 = Minor amount of residual staining, small fragments of stool and/or opaque liquid, but mucosa of colon segment seen well. 3 = Entire mucosa of colon segment seen well with no residual staining, small fragments of stool or opaque liquid) Impression and Post Procedure Diagnosis: diverticulosis colon polyps x 7 internal hemorrhoids Plan: High fiber diet leaflet Avoid straining at stool, epsom salts and sitz bath, anusol supps or cream Repeat Colonoscopy in 3 years or earlier if clinically indicated Above findings were reviewed with the patient and relevant handouts were provided if indicated.
[2025-04-02 09:26] VITALS: BP 93/71; PULSE 73; RESP 16; TEMP 37.1; O2SAT 97
[2025-04-02 09:40] VITALS: BP 107/70; PULSE 73; RESP 16; TEMP 37.1; O2SAT 95
[2025-04-02 09:45] VITALS: BP 106/71; PULSE 76; RESP 16; O2SAT 96
== END 2025-04-02 10:14 | disposition home or self-care (01) ==
PROVIDERS: PCP Family Medicine; Visit Provider Internal Medicine Gastroenterology
PROC: 0DJD8ZZ Inspection of Lower Intestinal Tract, Via Natural or Artificial Opening Endoscopic (ICD-10-PCS; CPT 45378; principal; 2025-04-02 09:20)
DX: Z12.11 Encounter for screening for malignant neoplasm of colon (principal); Z86.0101 Personal history of adenomatous and serrated colon polyps; E11.9 Type 2 diabetes mellitus without complications; K57.30 Diverticulosis of large intestine without perforation or abscess without bleeding; D12.2 Benign neoplasm of ascending colon; D12.4 Benign neoplasm of descending colon
CPT/HCPCS: 45380; 45385; 45381; 88305; J2003; J2405; J2704; J3010

== ENCOUNTER → 2025-04-02 07:25 | Outpatient (BNV) | payer OTHER, SELFPAY | PROVIDERS: PCP Family Medicine; Visit Provider Internal Medicine Gastroenterology | DX: Z12.11 Encounter for screening for malignant neoplasm of colon (principal); K63.5 Polyp of colon | CPT/HCPCS: 45380; 45385 ==

== ENCOUNTER 2025-04-17 10:55 | Outpatient (AMB) | payer OTHER, SELFPAY ==
--- NOTE | 2025-04-17 11:20 | MHC.OFFVIS ---
Vital Signs 04/17/25 11:29 Height 5 ft 8 in Weight 190 lb BMI 28.9 BP 129/80 Blood Pressure Location Lt brachial Position Sitting Pulse 68 Intake Visit Reasons: s/p [place] Intake Note: Patient follow up for Colonoscopy results Patient denies any GI issues. Flight Operation Coordinator Required: Yes Flight Operation Coordinator Name: Brennan [id number] Accompanied by: Spouse Allergies No Known Allergies Allergy (Mild, Verified 04/17/25 11:20) NOT APPLICABLE HPI HPI s/p [place]: Details: Patient is a 64-year-old male with PMH of hypertension, dyslipidemia and history of WI. F/u after 04/02/25 screening colonoscopy w/ findings of diverticulosis, five precancerous polyps, and internal hemorrhoids. Pt Denies change in BM pattern?regular frequency, no reported constipation, diarrhea, bleeding, or abd discomfort. No evidence of recurrent symptoms related to diverticulosis or hemorrhoids. Maintains consistent diet and hydration. No new or worsening GI sx reported. Denies hospitalizations, urgent visits, or GI flares since last encounter. [facility] Medical History (Updated 04/17/25 @ 12:03 by Belén Stephenson CNP) Diverticulosis Diabetes Tubular adenoma of colon Colon cancer screening HTN (hypertension) Heart attack Surgical History Hx of colonoscopy Stented coronary artery No pertinent past surgical history Family History Mother Heart disease Father Heart disease Social History Alcohol intake: current Alcohol intake frequency: holidays/special occasions only Patient Tobacco Use Status: Former Tobacco user Review of Systems Const Reports as per HPI ENT Reports as per HPI Card Reports as per HPI Resp Reports as per HPI GI Reports as per HPI Reports as per HPI Physical Exam Vital Signs: Last Vital Signs Pulse 68 04/17/25 11:29 BP 129/80 04/17/25 11:29 BMI result Body Mass Index 28.9 Const General: healthy appearing, no acute distress and well developed Nutritional Appearance: average body habitus Orientation/consciousness: patient oriented x3 HEENT Head: Yes normal to inspection, Yes normocephalic and Yes atraumatic Face and sinus: Yes normal facial exam Eyes General: appearance normal, both eyes and all related structures Neck Neck: Yes normal visual inspection Resp Effort & Inspection: normal respiratory effort, able to speak in complete sentences, no tracheal deviation and symmetric chest movement Cardio Jugular venous distension: no JVD Neuro General: patient oriented x3 Gait exam (Neuro): Normal gait present Psych Appearance: grossly normal Mental Status: mental status grossly normal Speech and movement: Normal speech and movement present Affect: normal affect Attitude: cooperative Thought process: Normal thought process present Thought content: Normal thought content present Insight: Good insight present (Psych) Judgement: Good judgement present (Psych) Assessment & Plan Assessment & Plan (1) Tubular adenoma of colon: Comment: 04/02/2025 colonoscopy complete with adequate prep- diverticulosis (ascending, sigmoid ), < 10 mm TA ( cecum), < 10mm TA X2 ( ascending), 6-8 mm TA ( descending ), grade 1 internal hemorrhoids. Per guidelines repeat in 3 years (2027). Code(s): D12.6 - Benign neoplasm of colon, unspecified Category: Medical Plan: S/p removal of five precancerous polyps, asymptomatic. Additional testing: Repeat colonoscopy in 3 yrs (2027). Medications: None needed. Lifestyle Recommendations: Continue dietary practices supportive of colon health. Referrals / Coordination of Care: Will notify pt closer to surveillance date. Follow-Up Plan: GI clinic f/u at time of repeat colonoscopy or earlier prn sx. (2) Diverticulosis: Code(s): K57.90 - Diverticulosis of intestine, part unspecified, without perforation or abscess without bleeding Category: Medical Plan: Stable, no symptoms of diverticulitis; no abd pain, fever, or GI bleeding. Additional testing: None indicated at this time. Medications: None needed for diverticulosis. Lifestyle Recommendations: Continue current diet; maintain good hydration; avoid processed/high-sugar foods, alcohol, and smoking as previously discussed; brief nutritional counseling reinforced. Referrals / Coordination of Care: None required. Follow-Up Plan: RTC prn for GI sx; no scheduled GI f/u until repeat colonoscopy in 2027. Plan Follow-up 3 years or sooner as needed Time: I spent a total of 15 minutes on the date of encounter which includes: Preparing to see the patient (reviewed previous documentation, test results and medical history) Performing a medically appropriate exam and/or evaluation Ordering medications, tests, and procedures Documenting clinical information in the health record Coding Level of Care Code Established Pt Est Pt Level 3 (99997) Patient Type Established Diagnoses Tubular adenoma of colon D12.6 Diverticulosis K57.90
[2025-04-17 11:29] VITALS: BP 129/80; PULSE 68; BMI 28.9
--- OUTSIDE RECORDS SUMMARY | 2025-04-17 21:35 | XMS_ITS | Clinical Summary ---
Author Organization [employer] [facility] Address [address] [place] [address] [place] [phone] Phone Care Team Providers Care Multi Operation Forming Machine Setter Name Role Phone [place], Beth Cuba MD Primary Care Provi regulo [...] file Medical Devices Not on file Insurance [facility] C3 ACO C3 ACO C3 ACO C[address] [place] [address] [place] [address] C3 ACO Care Teams Multi Operation Forming Machine Setter Relationship Specialty Start Date End Date [place], Beth Cuba MD [address] [place] [address] PCP - General Family Medicine 10/13/22 Additional Source Comments The information contained in this document represents components of the legal health record. It is not the complete legal health record.[facility]
--- OUTSIDE RECORDS SUMMARY | 2025-04-17 21:35 | XMS_ITS | Encounter Summary ---
Author Organization [facility] Address [address] [place] [address] Care Team Providers Care Science Liaison Name Role Phone Beth Villela MD Primary Care Provider Waleska Rachel PharmD Unavailable Beth Villela MD Primary Care Provider Vinicio Garcia Unavailable Meghan Loomis Unavailable [phone] Encounter Details Date Type Department Care Team (Late st Contact Info) Description 07/06/2022 Abstract [facility] MEDICINE [address] [place], [place] [phone] Beth Villela MD [address] [place], [place] [phone] Social History Tobacco Use Types Packs/Day Years [...] on filedocumented in this encounter Care Teams Science Liaison Relationship Specialty Start Date End Date Beth Villela MD [address] [place] [address] PCP - General Family Medicine 05/30/18 06/18/24 Beth Villela MD [address] [place] [address] PCP - General Family Medicine 06/19/24 Waleska Rachel, MichaelD [address] [place] [address] Pharmacist Internal Medicine 10/20/22 Vinicio Garcia [address] [place] [phone] Nephrology 07/22/24 Meghan Loomis [address] [place] [address] Cardiology 11/02/24 ERNIE Devi [facility] Urology [address] [place] [address] Urology 05/09/24 documented as of this encounter
--- OUTSIDE RECORDS SUMMARY | 2025-04-17 21:35 | XMS_ITS | Clinical Summary ---
Author Organization [employer] Address [address] [facility] [address] [place] [address] Care Team Providers Care Pmp Certified Project Manager Name Role Phone Waleska RachelD Unavailable [phone] Beth Villela MD Primary Care Provider [phone] Vinicio Garcia Unavailable Meghan Loomis Unavailable [phone] Allergies No known active allergies Medications [...] clopidogrel (Plavix) 75 MG tabletIndications :Atherosclerosis of [place] coronary artery with angina pectoris, unspecified whether [place] or transplanted heart Take 1 tablet (75 [...] Dose 81 MG EC tabletIndications :Atherosclerosis of [place] coronary artery with angina pectoris, unspecified whether [place] or transplanted heart Take 1 tablet (81 mg) by mouth Once per day. 90 tablet 3 5 Active Active Problems Problem Noted Date Diagnosed Date Alcohol use disorder, severe, dependence (CMS/HC C) 08/22/2024 Family history of prostate cancer 01/11/2024 Overview (10/19/2024): -followed by [facility], seen 01/04/24 -diagnostic cystoscopy normal 01/04/24 -will request PSA level from [facility], not available in [facility] 01/11/24 PSA 5.0 12/13/23 Assessment & Plan (10/19/2024 4:55 PM EDT): -followed by [facility], seen 01/04/24 -diagnostic cystoscopy normal 01/04/24 -will request PSA level from [facility], not available in [facility] 01/11/24 PSA 5.0 12/13/23 IGLESIA (generalized anxiety disorder) 12/22/2023 Gross hematuria 12/15/2023 Overview (01/11/2024): -Followed by [facility] -CT Abd/Pelis with and wo IV [...] freque ncy 11/28/2023 Overview (08/29/2024): -followed by [facility], seen 01/04/24 -diagnostic cystoscopy normal 01/04/24 - PSA 5.0 12/15/23 down from 5.05 April 2023, copy of lab received from urology -seen by [facility] 05/08/24, labs ordered, follow up 1 year -note from 08/29/24 reviewed Assessment & Plan (10/19/2024 4:55 PM EDT): -followed by [facility], seen 01/04/24 -diagnostic cystoscopy normal 01/04/24 - PSA 5.0 12/15/23 down from 5.05 April 2023, [facility] lab [facility], labs ordered, follow up 1 year -note from 08/29/24 reviewed Low vitamin D level 11/11/2023 Overview (10/19/2024): No results found for: [id number] Alcohol use disorder 10/31/2023 Assessment & Plan [...] Health Integration Plan Internal Follow up with [facility] Patient Self Plan Patient to utilize skills provided in intervention , [facility] needed, Patient to engage in OP therapy , and Patient to reach out to [facility] as needed Hypertensive chronic kidney disease 01/28/2023 Other specified health status 11/29/2022 Overview (08/22/2024): -next comprehensive annual evaluation due after 12/21/24 -eye care facilitated by -dental home is -[facility] proxy Assessment & Plan (12/02/2022 10:33 AM EDT): -next physical exam due after -eye care: referred 09/27/2022. 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 10/27/2022 Overview (04/16/2025): Hx vfib arrest 2022, s/p defib x 1 Hx [place] 09/2022 was found to be 100% occluded s/p LAURA and 70% D2 , preserved EF on echo -continue current meds including ASA,brillinta, atorvastatin 80 -statin discontinued in hospital for significant transaminitis--at hospital AST 619 and ALT 541, LFTS normalized and atorvastatin 80mg restarted -saw kennel attendant -Dr Brady on 11/04/2022 and w cardiac rehab on 11/14/2022 -cardiology note from [facility] cardiology 04/12/25 reviewed: carvedilol was decreased to 12.5 bid, continue chlorthalidone 25mg daily Assessment & Plan (10/19/2024 4:53 PM EDT): Hx [place] 09/2022 was found to be 100% occluded s/p LAURA and 70% D2 ostium stenosis not intervene per note yet. -continue current meds including ASA,brillinta, atorvastatin 80 -statin discontinued in hospital for significant transaminitis--at hospital AST 619 and ALT 541, LFTS normalized and atorvastatin 80mg restarted -saw kennel attendant -Dr Brady on 11/04/2022 and w cardiac rehab on 11/14/2022 -has appt to see cardiology Mar 2025 Assessment & Plan (03/21/2023 10:32 AM EDT): Hx [place] 09/2022 was found to be 100% occluded s/p LAURA and 70% D2 ostium stenosis not intervene per note yet. -continue current meds including ASA,brillinta, atorvastatin 80 -statin discontinued in hospital for significant transaminitis--at hospital AST 619 and ALT 541, LFTS normalized and atorvastatin 80mg restarted -saw kennel attendant -Dr Brady on 11/04/2022 and w cardiac rehab on 11/14/2022 Assessment & Plan (12/02/2022 9:19 AM EDT): Hx [place] 09/2022 was found to be 100% occluded s/p LAURA and 70% D2 ostium stenosis not intervene per note yet. -continue current meds including ASA,brillinta, atorvastatin 80 -statin discontinued in hospital for significant transaminitis--at hospital AST 619 and ALT 541, LFTS normalized and atorvastatin 80mg restarted -saw kennel attendant -Dr Brady on 11/04/2022 and w cardiac rehab on 11/14/2022 Assessment & Plan (10/27/2022 5:43 PM EDT): [place] - was found to be 100% occluded [...] but pt states has apt w his kennel attendant in 1 week and would follow with cards about medication -Gave today to pt all recent lab results here to take to his cards. -pt reports has all meds Refilled x now -has apt w kennel attendant -Dr Brady on 11/04/2022 and w cardiac [...] in 4 weeks Tubular adenoma 09/30/2022 Overview (04/02/2025): Tubular adenoma on 10/[address] Drummond. Repeat due in 10/2024. Colonoscopy 04/02/25 diverticulosis, colon polyps x [address]: Massimo Garrido MD, pathology pending Assessment & Plan (03/21/2023 10:30 AM EDT): Tubular adenoma on 10/[address] Drummond. Repeat due in 10/2024. Assessment & Plan (12/02/2022 9:20 AM EDT): Tubular adenoma on 10/[address] Drummond. Repeat due in 10/2024. Assessment & Plan (10/01/2022 8:50 AM EDT): Tubular adenoma on 10/[address] Drummond. Repeat due in 10/2024. Type 2 diabetes mellitus wit h diabetic autonomic neuropathy, without long-term current use of insulin 09/30/2022 Overview (01/21/2025): Diabetes is controlled. -Dx [...] atorvastatin 80mg once daily -Diabetic eye exam: [place] 09/2022. -Diabetic foot exam: 01/21/25 -Continue lifestyle [...] atorvastatin 80mg once daily -Diabetic eye exam: [place] 09/2022. -Diabetic foot exam: 10/01/2022. -Continue lifestyle [...] Start rosuvastatin 20mg 10/01/2022. -Diabetic eye exam: [place] 09/2022. -Diabetic foot exam:10/01/2022. -Continue lifestyle modifications [...] Start rosuvastatin 20mg 10/01/2022. -Diabetic eye exam: [place] 09/2022. -Diabetic foot exam: 10/01/2022. -Continue lifestyle [...] Start rosuvastatin 20mg 10/01/2022. -Diabetic eye exam: [place] 09/2022. -Diabetic foot exam: 10/01/2022. -Continue lifestyle [...] [place], urology from 12/07/23 reviewed. Seen by [facility] 05/08/24, labs ordered, follow up 1 [...] back to [facility]. Vitamin D deficiency 03/09/2012 Recurrent major depressive disorder, in partial remission 11/25/2011 Overview (08/22/2024): Strongly encouraged to schedule [...] Patient to reach out to [facility] team as needed, and Patient to [...] prn, 10 tabs/month 10/01/2022 Hypertension 11/25/2011 Overview (04/16/2025): Per cardiology note from 11/04/22, patient to discontinue chlorthalidone which patient reported previous awareness of. Notes that patient is to switch from metoprolol to carvedilol. -Continue lifestyle modifications -Continue Norvasc 10mg daily. Pt does not tolerate generic. -Continue carvedilol 12.5 bid -Continue lisinopril 40mg daily. -Continue chlorthalidone 25mg daily -Cardiology note from [facility] cardiology 04/12/25 reviewed: carvedilol was decreased to 12.5 bid, continue chlorthalidone 25mg daily Assessment & Plan (10/19/2024 4:54 PM EDT): [...] x 4 weeks and to f with kennel attendant as well ---if actual elevated would need [...] 01/11/2024 0 01/11/2024 Overview (01/11/2024): -followed by [facility], seen 01/04/24 -diagnostic cystoscopy normal 01/04/24 Senile dementia with depression ([facility]/HCC) 01/28/2023 11/28/2023 Ventricular fibrillation ([facility]) 01/28/2023 03/21/2023 Diabetes mellitus due to und [...] organization. Date Type Department Care Team Description 04/02/2025 Orders Only GENERIC EXTERNAL DATA DEPARTMENT Provider, Generic External Data 01/31/[address] [address] Beth Villela MD Call Back Request 01/21/2025 11:15 AM EDT Office Visit [address] [address] Beth Villela MD Type 2 diabetes mellitus with diabetic autonomic neuropathy, without long-term current use of insulin ([facility]) (Primary Dx); Hypertension, unspecified type; Dyslipidemia; Anemia, unspecified type; Tubular adenoma 01/21/2025 Travel 01/18/[address] [address] Beth Villela MD CHART PREP 01/17/[address] [address] Beth Villela MD from Last 3 Months Immunizations Immunization Administration [...] 60 years or older (1 - Risk 50-74 years 1-dose series) 2008 Eye Exam 04/22/2023 04/22/2021 COVID-19 Vaccine ( season) 2025 05/25/2021, 08/24/2020 Influenza Vaccine (#1) 2025 , 05/25/2021, 05/25/2021, Additional history exists Diabetes: Hemoglobin A1C 04/23/2025 025, 01/18/2025, 10/19/2024, Additional history exists Depression Monitoring 07/24/2025 01/21/2025, 025 Diabetes: Urine Protein Screening 01/18/2026 01/18/2025, 12/22/2023 Lipid Panel 01/18/2026 01/18/2025, 11/27, 10/26/2022 Diabetes: Foot Exam 01/21/2026 01/21/2025, 01/21/2025, 01/21/2025, Additional history exists SDOH Screening 01/21/2026 01/21/2025 Tobacco Screening 01/21/2026 01/21/2025 Colonoscopy 04/02/2028 04/02/2025, 11/20/2019 Colorectal Cancer Screening 04/02/2028 DTaP/Tdap/Td Vaccines (2 - Td or Tdap) [...] pressure once per day Blood Pressure No Bhargavi Stewartsa, PharmD Record Your Blood Sugar Daily General No Waleska Stewart, PharmD Take your medication every day Lifestyle No Waleska Stewart, PharmD Hemoglobin A1c < 7.5 Result Component 7.5( 11:47 AM EDT) No Waleska Stewart, PharmD Help patients manage their type 2 diabetes Care Plan Help patients manage their type 2 diabetes No Beth Villela MD Weekly blood pressure task Care Plan Weekly blood pressure task Beth Willson MD Help patients manage their type 2 diabetes Care Plan Help patients manage their type 2 diabetes Beth Willson MD Patient has chronic kidney disease Care Plan Patient has chronic kidney disease Beth Willson MD Weekly blood pressure task Care Plan Weekly blood pressure task Beth Willson MD Patient has chronic kidney disease Care Plan Patient has chronic kidney disease No Beth Villela MD Procedures Procedure Name Priority Date/Time Associated Diagnosis Comments HEMATOXYLIN AND EOSIN STAIN Routine 04/02/2025 9:05 AM EST HM COLONOSCOPY Routine 04/02/2025 POCT GLYCATED HEMOGLOBIN, TOTAL Routine 01/21/2025 11:47 AM EDT Type 2 diabetes mellitus with diabetic autonomic neuropathy, without long-term current use of insulin (CMS/HCC) POCT GLUCOSE Routine 01/21/2025 11:44 AM EDT Type 2 diabetes mellitus with diabetic autonomic neuropathy, without long-term current use of insulin (CMS/HCC) PSA, TOTAL WITH REFLEX TO PSA, FREE Routine 01/18/2025 8:30 AM EDT Type 2 diabetes mellitus with diabetic autonomic neuropathy, without long-term current use of insulin (CMS/HCC) BASIC METABOLIC PANEL Routine 01/18/2025 8:30 AM EDT Type 2 diabetes mellitus with diabetic autonomic neuropathy, without long-term current use of insulin (CMS/HCC) HEMOGLOBIN A1C Routine 01/18/2025 8:30 AM EDT Type 2 diabetes mellitus with diabetic autonomic neuropathy, without long-term current use of insulin (CMS/HCC) LIPID PANEL, STANDARD Routine 01/18/2025 8:30 AM EDT Dyslipidemia HEPATIC FUNCTION PANEL Routine 01/18/2025 8:30 AM EDT Type 2 diabetes mellitus with diabetic autonomic neuropathy, without long-term current use of insulin (CMS/HCC) ALBUMIN, RANDOM URINE W/CREATININE Routine 01/18/2025 8:30 AM EDT Type 2 diabetes mellitus with diabetic autonomic neuropathy, without long-term current use of insulin ([facility]) VITAMIN B12/FOLATE, SERUM PANEL Routine 01/18/2025 8:30 [...] complication, without long-term current use of insulin ([facility]) DIABETES EYE EXAM Routine 04/22/2021 7:54 PM EST from Last 3 Months or Most Recently Relevant to Health Maintenance Results * Hematoxylin and Eosin Stain (04/02/2025 9:05 AM EST) 04/02/2025 9:05 AM EST 04/02/2025 10:05 AM EST [facility] - 04/04/2025 10:05 AM EST ----- ------- Name: Gume Colon Age/Sex: 65/M : 1960 Unit#: [id number] Attend Dr: Massimo Garrido MD Re04/02/25 Status: [facility] Location: [facility] Disch: ----- ------- SPEC : [id number] RECD: 04/02/25 STATUS: JANICE MARY ANNEBrandon NUM: [id number] NIKITA: 04/02/25-[address] [facility] [address]: Massimo Garrido MD ENTERED: 04/02/25-1026 SP TYPE: Surgical OTHR DR: Beth Villela MD ORDERED: HE Stain/9, Gross Micro L4/3 Diagnosis A. Colon, cecal polyps: Tubular adenoma (1 piece); negative for high-grade dysplasia and carcinoma. B. Colon, ascending, polyps: Tubular adenomas (3 pieces); negative for high-grade dysplasia and carcinoma. C. Colon, descending, polyps: Tubular adenoma, completely excised (1 piece); negative for high-grade dysplasia and carcinoma. Clinical History Pre-Op Dx: Screening Post-Op Dx: Colon polyps, Diverticulosis, internal hemorrhoids Microscopic Description Microscopic sections reviewed. Material Received A. cecal polyps B. Ascending colon polyps C. Descending colon polyps Gross Description A. Received in formalin are multiple bustillos soft tissue fragments admixed with vegetable material measuring 0.5-5mm, totally submitted in cassette A1. B. Received in formalin are multiple bustillos-white soft tissue fragments admixed with vegetable material measuring 0.5-8 mm, totally submitted in cassette B1. C. Received in formalin received in formalin is 1 bustillos-red polyp measuring 9 mm, inked at the margin and bisected, totally submitted in cassette C1. (OWR) IHC S/NG Disclaimer NOTE: Unless otherwise stated, all tissue is formalin-fixed and paraffin-embedded. Some or all of the immunohistochemical tests reported herein may have been developed and their performance characteristics determined by [facility]. They have not been cleared or approved by the U.S. Food and Drug Administration (FDA). However, the FDA has determined that such clearance or approval is not necessary. This laboratory is certified under the Clinical Laboratory Improvement Amendments of 1988 (CLIA) as qualified to perform high complexity clinical laboratory testing. CONTINUED ON NEXT PAGE ----- ------- Name: Gume Colon Age/Sex: 65/M : 1960 Unit#: [id number] Attend Dr: Massimo Garrido MD Re04/02/25 Status: [facility] Location: [facility] Disch: ----- ------- SPEC : [id number] RECD: 04/02/25 STATUS: JANICE MOCNADA NUM: [id number] NIKITA: 04/02/[address] [facility] [address]: Massimo Garrido MD ENTERED: 04/02/25-1026 SP TYPE: Surgical OTHR DR: Beth Villela MD ORDERED: HE Stain/9, Gross Micro L4/3 Copies To: Beth Villela MD [address] [address] Massimo Garrido MD [facility] [address] [place] [phone] ----- ------- Signed (signature on file) Smita Demetris 04/04/25 1005 ----- ------- END OF REPORT Generic External Data Provider LAB BLOOD ORDERAB LES Final Result [facility] [address] [place] [phone] * (ABNORMAL) Hm Colonoscopy (04/02/2025) [facility] Colonoscopy Abnormal( A) Normal Comment:Dr: Massimo Garrido MD polyps x 7 Historical Provider HEALTH MAINTENANCE Final Result * (ABNORMAL) POCT HGB A1C (01/21/2025 11:47 AM EDT) [facility] Hemoglobin A1C 7.5(A) 4.0 - 5.7 % QC Media Lot # [id number] Lot# Expiration Date [id number] Blood 01/21/2025 11:4 7 AM EDT Beth Villela MD POINT OF CARE TEST ENTER/E DIT ORDERABLES Final Result * POCT Glucose (01/21/2025 11:44 AM EDT) [facility] Glucose Blood, POC 156 60 - 200 mg/dL [employer] Media Lot # [id number] Lot# Expiration Date [id number] Blood Capillary blood specimen / Unknown 01/21/2025 11:44 AM EDT Beth Villela MD POINT OF CARE TEST ENTER/E DIT ORDERABLES Final Result * Vitamin B12 (Cobalamin) and Folate Panel, Serum (01/18/2025 8:30 AM EDT) Pathologist [facility] Vitamin B12 253 200 - 900 pg/mL [facility] Comment:NORMAL 200-900 PG/ML INDETERMINATE 160-199 PG/ML DEFICIENT < 160 PG/ML Folate 10.7 > or = 4.0 ng/mL [facility] Comment:Reference Values:> o r = [...] BLOOD ORDERABLES Final Result Performing Organization Address [facility] Co de Phone Number [facility] [address] [place] [phone] * TSH with Reflex to Free T4 (01/18/2025 8:30 AM EDT) Pathologist [facility] TSH reflex Free T4 0.68 0.32 - 4.0 uIU/mL [facility] Blood Venous blood specimen / Unknown 01/18/2025 8:30 AM EDT 01/18/2025 11:51 AM EDT Beth Villela MD LAB BLOOD ORDERABLES Final Result Performing Organization Address City/[facility] Co de Phone Number [facility] [address] [place] [phone] * PSA, Total With Reflex to PSA, Free (01/18/2025 8:30 AM EDT) PSA,Total (Free>4and<10) 3.96 0.00 - 4.00 ng/mL [facility] Comment:A Free PSA was not [...] are between 4.0 and 10.0 ng/mL.PSA methodology: mTraks Alinity i ChemiluminescentMicroparticle Immunoassay (CMIA) 01/18/2025 8:30 AM EDT 01/18/2025 11:51 AM EDT us Generic External Data Provider LAB BLOOD ORDERAB LES Final Result Performing Organization Address City/[facility]/ZIP Co de Phone Number [facility] [address] [place] [phone] * Albumin, Random Urine W/Creatinine (01/18/2025 8:30 AM EDT) Creatinine, Urine 24.08 mg/dL [facility] Microalbumin Urine <5.0 mg/L [facility] Microalbum Creatinine Ratio Ur TNP <30 ug/mg cr [facility] Comment:Unable to calculate albumin/creatinine ratio due to lowmicroalbumin or creatinine result. Urine 01/18/2025 8:30 AM EDT 01/18/2025 11:49 AM EDT us Beth Villela MD LAB URINE ORDERABLES Final Result [facility] [address] [place] [phone] * (ABNORMAL) CBC auto differential (01/18/2025 8:30 AM EDT) White Blood Count 7.4 4.8 - 10.8 X10*3/uL [facility] Red Blood Count 4.65 4.60 - 5.80 X10*6/uL [facility] Hemoglobin 13.9(L) 14.0 - 18.0 g/dl [facility] Hematocrit 41.0(L) 42.0 - 52.0 % [facility] Mean Corpuscular Volume 88.2 80.0 - 98.0 fL [facility] Mean Corpuscular Hemoglobin 29.9 27.0 - 33.0 pg [facility] Mean Corpuscular HGB Conc 33.9 31.0 - 36.0 g/dl [facility] Red Cell Distribution Width 13.8 11.0 - 16.0 % [facility] Platelet Count 227 160 - 400 X10*3/uL [facility] Mean Platelet Volume 11.1 9.4 - 12.4 fL [facility] Neutrophils Percent Auto 60.8 45 - 73 % [facility] Imm Gran Pct Auto 0.3 0.0 - 0.4 % [facility] Lymphocytes Percent Auto 26.4 20 - 40 % [facility] Monocytes Percent Auto 8.2 2 - 11 % [facility] Eosinophils Percent Auto 3.5 0 - 4 % [facility] Basophils Percent Auto 0.8 0 - 2 % [facility] NRBC Pct Auto 0.0 0.0 - 0.2 /100WBC [facility] Neutrophils Absolute Auto 4.5 2.0 - 8.3 x10*3/uL [facility] Imm Gran Abs Auto 0.02 0.00 - 0.03 X10*3/uL [facility] Lymphocytes Absolute Auto 1.9 1.2 - 4.9 X10*3/uL [facility] Monocytes Absolute Auto 0.6 0.1 - 1.2 X10*3/uL [facility] Eosinophils Absolute Auto 0.3 0.0 - 0.4 X10*3/uL [facility] Basophils Absolute Auto 0.1 0.0 - 0.2 X10*3/uL [facility] NRBC Abs Auto 0.000 0.0 - 0.012 X10*3/uL [facility] Blood Venous blood specimen / Unknown 01/18/2025 8:30 AM EDT 01/18/2025 11:51 AM EDT Beth Villela MD LAB BLOOD ORDERABLES Final Result Performing Organization Address [facility]/ZIP Co de Phone Number [facility] [address] [place] [phone] * Iron And Total Iron Binding Capacity (01/18/2025 8:30 AM EDT) Iron 94 45 - 160 mcg/dL [facility] Total Iron Binding Capacity 287 228 - 428 mcg/dL [facility] Percent Iron Saturation 33 15 - 50 % [facility] Unsaturated Iron Binding 193 ug/dL [facility] Blood Venous blood specimen / Unknown 01/18/2025 8:30 AM EDT 01/18/2025 11:51 AM EDT Beth Villela MD LAB BLOOD ORDERABLES Final Result Performing Organization Address [facility] Co de Phone Number [facility] [address] [place] [phone] * (ABNORMAL) Hemoglobin A1c (01/18/2025 8:30 AM EDT) Hemoglobin A1c 7.1(H) <6.0 % [facility] Comment:Hemoglobin A1C Refer ence Range Adults: 4.8 - 6.0 % Non diabetic: < 6.0 % Goal: < 7.0 %Additional Action Suggested: > 8.0 %Note: Hemoglobin A1c results are invalid for patients with abnormal amounts of HbF. Blood transfusions may impact the HbA1c concentration in the patient sample. Estimated Average Glucose 157 mg/dL [facility] Comment:eAG = Estimated ave rage glucose which is %A1C expressed asaverage glucose, using the formula of the D3O-KobtkrrFkzfbdg Glucose study (ADAG), Diabetes Care, Vol.31,#8,Dec. 2007 Blood Venous blood specimen / Unknown 01/18/2025 8:30 AM EDT 01/18/2025 11:51 AM EDT Beth Villela MD LAB BLOOD ORDERABLES Final Result Performing Organization Address [facility] Co de Phone Number [facility] [address] [place] [phone] * Ferritin (01/18/2025 8:30 AM EDT) Ferritin 49 20 - 250 ng/mL [facility] Blood Venous blood specimen / Unknown 01/18/2025 8:30 AM EDT 01/18/2025 11:51 AM EDT Beth Villela MD LAB BLOOD ORDERABLES Final Result Performing Organization Address [facility] de Phone Number [facility] [address] [place] [phone] * Hepatic Function Panel (01/18/2025 8:30 AM EDT) Bilirubin, Total 0.6 0.0 - 1.0 mg/dL [facility] Bilirubin, Direct 0.2 0.0 - 0.5 mg/dL [facility] Aspartate Amino Transferase 26 5 - 37 U/L [facility] Alanine Aminotransferase 30 0 - 40 U/L [facility] Total Protein 7.5 6.5 - 8.0 g/dL [facility] Albumin Level 4.5 3.5 - 5.0 g/dL [facility] Alkaline Phosphatase 65 39 - 117 U/L [facility] Blood Venous blood specimen / Unknown 01/18/2025 8:30 AM EDT 01/18/2025 11:51 AM EDT Beth Villela MD LAB BLOOD ORDERABLES Final Result Performing Organization Address [facility] Co de Phone Number [facility] [address] [place] [phone] * Lipid Panel, Standard (01/18/2025 8:30 AM EDT) Triglycerides 90 <150 mg/dL [facility] Comment:Desirable Triglyceri de: less than 150 mg/dLBorderline High Triglyceride 150-199 mg/dLHigh Triglyceride: 200-499 mg/dLVery High Triglyceride: greater than or equal to 5OO mg/dL Cholesterol 154 <200 mg/dL [facility] Comment:Desirable Cholestero l: less than 200 mg/dLBorderline High Cholesterol: 200-239 mg/dLHigh Cholesterol: greater than 239 mg/dL LDL Cholesterol Calculated 92 <100 mg/dL [facility] Comment:Desirable LDL: less than 100 mg/dLNear Optimal/Above Optimal LDL: 110- 129 mg/dLBorderline High LDL: 130-159 mg/dLHigh LDL: 160-189 mg/dLVery High LDL: greater than or equal to 190 mg/dL HDL Cholesterol 44 >40 mg/dL [facility] Comment:Desirable HDL: great er than 40 mg/dL Note: This HDL assay may give artificially low results in patients with liver disease. Blood Venous blood specimen / Unknown 01/18/2025 8:30 AM EDT 01/18/2025 11:51 AM EDT Beth Villela MD LAB BLOOD ORDERABLES Final Result Performing Organization Address [facility] Co de Phone Number [facility] [address] [place] [address] [phone] * (ABNORMAL) Basic Metabolic Panel (01/18/2025 8:30 AM EDT) Sodium 141 135 - 145 mmol/L [facility] Potassium 3.6 3.3 - 5.1 mmol/L [facility] Chloride 106 96 - 108 mmol/L [facility] Carbon Dioxide 27 22 - 29 mmol/L [facility] Anion Gap 12 12 - 20 [facility] Urea Nitrogen (BUN) 20(H) 9 - 16 mg/dL [facility] Creatinine, Serum 1.17 0.5 - 1.4 mg/dL [facility] Estimated Glomerular Filt Rate >60 [facility] Comment:Chronic Kidney Disea se: Estimated GFR < 60 mL/min/1.75d0Hrifls Kidney Disease: Estimated GFR < 15 mL/min/1.73m2 Glucose 146(H) 60 - 115 mg/dL [facility] Calcium 9.1 8.4 - 10.2 mg/dL [facility] Blood Venous blood specimen / Unknown 01/18/2025 8:30 AM EDT 01/18/2025 11:51 AM EDT Beth Villela MD LAB BLOOD ORDERABLES Final Result [facility] [address] [place] [phone] * Hepatitis C Antibody with Reflex to HCV, RNA, Quantitative, Real-Time PCR (10/26/2022 11:40 AM EDT) Hepatitis C Antibody NON-REACT CAMI NON-REACT CAMI [facility] [place] [employer] Index 0.02 <1.00 [facility] [place] [employer] Comment: HCV antibody was non-reactive. There is no laboratory evidence of HCV infection. In most cases, no further action is required. However, if recent HCV exposure is suspected, a test for HCV RNA (test code 18520) is suggested. For additional information please refer to http://education.Qufenqi/faq/AWI00s5 (This link is being provided for informational/ educational purposes only.) Blood Venous blood specimen / Unknown 10/26/2022 11:40 AM EDT 10/26/2022 11:41 AM EDT Narrative [facility] - 10/30/2022 1:28 PM EDT FASTING:UNKNOWN FASTING: UNKNOWN Beth Villela MD LAB BLOOD ORDERABLES Final Result [facility] [address], [place] [address] [facility] [place] [facility] [address] [place] [address] * Diabetes Eye Exam (04/22/2021 7:54 PM EST) [facility] Signature Eye Exam Normal Normal Comment:[facility] Historical Provider HEALTH MAINTENANCE Final Result from Last 3 Months or Most Recently Relevant to Health Maintenance Additional Health Concerns Active Problems Noted Date Diagnosed Date Help patients manage their type 2 diabetes 04/16 Weekly blood pressure task 04/16/2025 Help patients manage their type 2 diabetes 04/16 Patient has chronic kidney disease 04/16/2025 Weekly blood pressure task 04/16/2025 Patient has chronic kidney disease 04/16/2025 Insurance [facility] OPTIONS (HMO D-SNP) GENERIC TPL Care Teams Pmp Certified Project Manager Relationship Specialty Start Date End Date [place], MD Beth [address] [place] [address] PCP - General Family Medicine 06/19/24 Waleska Rachel PharmD [address] [place] [address] Pharmacist Internal Medicine 10/20/22 Vinicio Garcia [address] [phone] Nephrology 07/22/24 Meghan Loomis [address] [place] [address] Cardiology 11/02/24 ERNIE Devi [facility] [address] [facility] [address] [place] [address] Urology 05/09/24
--- OUTSIDE RECORDS SUMMARY | 2025-04-17 21:35 | XMS_ITS | Encounter Summary ---
Author Organization [facility] Address [address] [place] [address] Care Team Providers Care Padder Cushion Name Role Phone Unavailable Primary Care Provider Unavailabl e Encounter Details Date Type Department Care Team (Late st Contact Info) Description 05/10/2024 Lab Requisition [facility] [address] [facility] [place] [address] Will Stockton PA [address] [place] [phone] Other microscopic hematuria Social History Tobacco Use [...] grade urothelial carcinoma. 06/01/2024 4:[address] [facility] Clinical Information [id number] Urine cytology w/reflex Urovysion. 06/01/2024 4:[address] [facility] Gross Description A. Urine, Voided, : [id number] Recd 1 TP slide 06/01/2024 4:49 PM EST [facility] Disclaimer Unless otherwise specified, all tissue is 10% NB formalin fixed and paraffin embedded. Technical pathology services provided by [facility] [address] [facility] [address] [place] [address] (CLIA #[id number]/S balaji Hudson MD, Time Study Engineer) 06/01/2024 4:[address] [facility] Tissue Urine specimen from urethra / Unknown 05/08/2024 05/10/2024 10:00 AM EST us Will KLEIN LAB PATHOLOGY ORDERAB LES Final Result [facility] [address] [place] [address], documented in this encounter Visit Diagnoses Diagnosis Other microscopic hematuria documented in this encounter
--- OUTSIDE RECORDS SUMMARY | 2025-04-17 21:36 | XMS_ITS | Encounter Summary ---
Author Organization [facility] Address [address] [place] [address] Care Team Providers Care Abstract Manager Name Role Phone Unavailable Primary Care Provider Unavailabl e Encounter Details Date Type Department Care Team (Late st Contact Info) Description 05/07/2024 Lab Requisition [facility] [address] [place] [address] Milan Clarke MD [address] [facility] [address] [place] [address] Gross hematuria Social History Tobacco Use Types [...] high-grade urothelial carcinoma. 05/18/2024 5:55 PM EST [facility] Clinical Information [id number] Urine cytology w/reflex UroVysion. 05/18/2024 5:55 PM EST [facility] Gross Description A. Urine, Voided, : [id number] recd 1 TP slide. 05/18/2024 5:55 PM EST [facility] Disclaimer Unless otherwise specified, all tissue is 10% NB formalin fixed and paraffin embedded. Technical pathology services provided by [facility] at [address] [facility] [address], [place] [address] (CLIA #[id number]/S balaji Hudson MD, Supervisor Treating And Pumping) 05/18/2024 5:55 PM EST [facility] Tissue Urine specimen from urethra / Unknown 05/01/2024 05/07/2024 10:50 AM EST us Milan Clarke MD LAB PATHOLOGY ORDERABLES Fi nal Result [facility] [address] [place] [address], documented in this encounter Visit Diagnoses Diagnosis Gross hematuria documented in this encounter
--- OUTSIDE RECORDS SUMMARY | 2025-04-17 21:36 | XMS_ITS | Clinical Summary ---
Author Organization [address] Address [address] [place] [address] Phone Care Team Providers Care Nurse Anesthesia Program Director Name Role Phone Unavailable Primary Care Provider [...] Done Comments Colorectal Cancer Screening: Colonoscopy 1958 Diabetes: Annual Foot Exam 1968 Diabetes: Annual Retina Eye Exam 1968 Falls Risk Assessment 06/24/2023 Social Influencers of Health Screening 06/24/2023 Hepatitis A Vaccines (2 of 2 - Risk 2-dose series) 09/20/2023 03/21/2023 Depression Screening 05/30/2024 COVID-19 Vaccine (3 - 2024-2 6 season) 2025 05/25/2021, 08/24/2020 Influenza Vaccine (#1) 2025 , 05/25/2021, 02/26/2019 Diabetes: Annual Urine Albumin-Creatinine Ratio (uACR) 03/29/2025 Diabetes: Blood Sugar Contro l Test (HGBA1C) 07/24/2025 01/21/2025, 01/18/2025 Diabetes: Annual GFR (Glomerular Filtration Rate) 01/18/2026 01/18/2025 Hypertension/CHF/CAD Annual BMP Blood Test 01/18/2026 01/18/2025 DTaP,Tdap,and Td Vaccines (3 - Td or Tdap) 02/26/2029 02/26/2019, 01/25/2006 Cholesterol Screening (Lipid Panel) 01/18/2030 01/18/2025 RSV Immunization Adult Patients (1 - 1-dose 75+ series) 2033 Zoster Vaccines Completed 02/19/2022, 12/18/2021 Hepatitis C Screening Completed 10/26/2022 Pneumococcal Vaccine: 50+ Years Completed 12/02/2022 Hepatitis B Vaccines Completed 11/08/2023, 04/18/2023, 03/21/2023 [...] to complete this topic RSV Immunization Patients Under 20 months Aged Out No longer eligible b ased on patient's age to complete this topic Varicella Vaccines Aged Out No longer eligible based on patient's age to complete this topic Insurance MEDICA[place] - [place]
--- OUTSIDE RECORDS SUMMARY | 2025-04-17 21:36 | XMS_ITS | Clinical Summary ---
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 [address] [address] Vinicio Garcia MD [address] [address] Health Maintenance Due Date Last [...] on patient's age to complete this topic Procedures Procedure Name Priority Date/Time Associated Diagnosis Comments PTH, INTACT Routine 04/12/2025 2:31 PM EST VITAMIN D 25 HYDROXY Routine 04/12/2025 2:31 PM EST PROTEIN / CREATININE RATIO, URINE Routine 04/12/2025 2:31 PM EST RENAL FUNCTION PANEL Routine 04/12/2025 2:31 PM EST from Last 3 Months Results * Protein, Total, Random Urine w/Creatinine (Protein/Creat Ratio) (04/12/2025 2:31 PM EST) Creatinine, Ur 89.6 Not Estab. mg/dL [facility] Protein, Ur 7.9 Not Estab. mg/dL [facility] Urine Protein/Creatin ine Ratio 88 0 - 200 mg/g creat [facility] 04/12/2025 2:31 PM EST 04/12/2025 us Vinicio Garcia MD LAB URINE ORDERABLES Final Resu lt [facility] [address] [place] [address] * (ABNORMAL) Vitamin D 25 Hydroxy (04/12/2025 2:31 PM EST) Vitamin D, 25-OH, Total 23.6(L) 30.0 - 100.0 ng/mL [facility] Comment: Vitamin D deficiency has been defined by the [place] of Medicine and an Endocrine Society practice guideline as a level of serum 25-OH vitamin D less than 20 ng/mL (1,2). The Endocrine Society went on to further define vitamin D insufficiency as a level between 21 and 29 ng/mL (2). 1. IOM ([place] of Medicine). 2010. Dietary reference intakes for calcium and D. [place]: The National Academies Press. 2. Obed TRIMBLE, Mariusz FAY, Breanna BURGOS, et al. Evaluation, treatment, and prevention of vitamin D deficiency: an Endocrine Society clinical practice guideline. JCEM. 2010; 96(7):1911-30. 04/12/2025 2:31 PM EST 04/12/2025 us Vinicio Garcia MD LAB BLOOD ORDERABLES Final Resu lt [facility] [address] [place] [address] * PTH, Intact (04/12/2025 2:31 PM EST) PTH 52 15 - 65 pg/mL [facility] 04/12/2025 2:31 PM EST 04/12/2025 us Vinicio Garcia MD LAB BLOOD ORDERABLES Final Resu lt [facility] [address], [address] [place] [phone] * (ABNORMAL) Renal Function Panel (04/12/2025 2:31 PM EST) Glucose 102(H) 70 - 99 mg/dL [facility] BUN 19 8 - 27 mg/dL [facility] Creatinine 1.15 0.76 - 1.27 mg/dL [facility] eGFR CKD-EPI CR 2020 70 >59 mL/min/1.7 3 [facility] BUN/Creatinine Ratio 17 10 - 24 [facility] Sodium 140 134 - 144 mmol/L [facility] Potassium 3.9 3.5 - 5.2 mmol/L [facility] Chloride 103 96 - 106 mmol/L [facility] Bicarbonate (CO2) 29 20 - 29 mmol/L [facility] Calcium 9.4 8.6 - 10.2 mg/dL [facility] Albumin 4.3 3.9 - 4.9 g/dL [facility] Phosphorus 3.6 2.8 - 4.1 mg/dL [facility] 04/12/2025 2:31 PM EST 04/12/2025 us Vinicio Garcia MD LAB BLOOD ORDERABLES Final Resu lt [facility] [address], [address] [place] [address] from Last 3 Months Insurance [facility] ERNIE HAYDEN [id number] Care Teams Core Measures Abstractor Relationship Specialty Start Date End Date [place], Beth Carmichael MD [address] [place] [phone] PCP - General Family Medicine 01/28/23
--- OUTSIDE RECORDS SUMMARY | 2025-04-17 21:36 | XMS_ITS | Encounter Summary ---
Author Organization [employer] Address [address] [facility] [address] [place] [address] Care Team Providers Care Account Executive Agribusiness Name Role Phone Beth Villela MD Primary Care Provider + [phone] Waleska Rachel PharmD Unavailable Beth Villela MD Primary Care Provider + [phone] Vinicio Garcia Unavailable Meghan Loomis Unavailable [phone] Encounter Details Date Type Department Care Team (Late st Contact Info) Description 03/23/2023 Orders Only [facility] [address] [place], [place] [phone] Beth Villela MD [address] [place], [place] [phone] Social History Tobacco Use Types Packs/Day Years Used Date Smoking Tobacco: Never Passive Smoke Exposure: Never Smokeless Tobacco: Never Housing Stability Answer Date Recorded What is your housing situation today? I do not have housing (Staying with others, in a hotel, in a senior living, living outside on the street, on a [...] on filedocumented in this encounter Care Teams Account Executive Agribusiness Relationship Specialty Start Date End Date Beth Villela MD [address] [place] [phone] PCP - General Family Medicine 05/30/18 06/18/24 Beth Villela MD [address] [place] [address] PCP - General Family Medicine 06/19/24 Waleska Rachel, MichaelD [address] [place] [address] Pharmacist Internal Medicine 10/20/22 Vinicio Garcia [address] [facility] [address] [phone] Nephrology 07/22/24 Ebonie Meghan L [address] [facility] [address] [place] [address] Cardiology 11/02/24 ERNIE Devi [facility] [address] [place] [address] Urology 05/09/24 documented as of this encounter
== END 2025-04-17 12:12 | disposition home or self-care (01) ==
LOC: HO.HGI 10:56
PROVIDERS: PCP Family Medicine; Visit Provider Nurse Practitioner Family
DX: D12.6 Benign neoplasm of colon, unspecified (principal); K57.90 Diverticulosis of intestine, part unspecified, without perforation or abscess without bleeding
CPT/HCPCS: 99213

== ENCOUNTER → 2025-04-17 10:55 | Outpatient (BNVA) | payer OTHER, SELFPAY | PROVIDERS: PCP Family Medicine; Visit Provider Nurse Practitioner Family | DX: K57.90 Diverticulosis of intestine, part unspecified, without perforation or abscess without bleeding (principal); D12.6 Benign neoplasm of colon, unspecified | CPT/HCPCS: 99212 ==